=== PATIENT | female | born 1985 | race Caucasian/White ===

== ENCOUNTER 2017-04-27 08:23 | Emergency (ER) | payer SELFPAY ==
[2017-04-27 09:33] LABS: Urine Blood NEGATIVE (NEG); Urine Glucose NEGATIVE (NEG); Urine Protein NEGATIVE (NEG); Urine Specific Gravity 1.025 (1.005-1.030)
--- NOTE | 2017-04-27 09:55 | ER ---
Nurse's Notes [facility] Name: Marcy Montiel Age: 31 yrs Sex: Female : 1985 Arrival Date: 04/27/2017 Time: 08:27 Bed 15 Private MD: Diagnosis: Bronchitis, not specified as acute or chronic;Acute pharyngitis Presentation: 04/27 08:46 Presenting complaint: Patient states: i had initially had sore throat 3 weeks ago, but hj it went away now it came back 2 days ago with a cough and last night, with my cough, i had a phlegm with blood on it; denies fever and chills; reports chest pain due to coughing;. Transition of care: patient was not received from another setting of care. Onset of symptoms was April 27, 2017. Care prior to arrival: None. 08:46 Method Of Arrival: Ambulatory 08:46 Acuity: ZAINAB 4 hj Triage Assessment: 08:48 General: Appears in no apparent distress. uncomfortable, Behavior is calm, cooperative, hj appropriate for age. Pain: Complains of pain in chest. EENT: Reports pain when swallowing. 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 - Social history:: Smoking status: Patient uses tobacco products, Patient/guardian denies using alcohol. Screenin:48 Abuse screen: Denies threats or abuse. Denies injuries from another. Nutritional hj screening: No deficits noted. Tuberculosis screening: No symptoms or risk factors identified. Fall Risk None identified. Assessment: 08:49 Respiratory: Airway is patent Respiratory effort is even, unlabored, Breath sounds are hj clear. EENT: Throat is reddened. Vital Signs: 08:49 BP 123 / 84; Pulse 90; Resp 18; Temp 98.1(O); Pulse Ox 100% on R/A; Weight 58.97 kg; hj Height 5 ft. 4 in. (162.56 cm); 10:31 BP 107 / 63; Pulse 74; Resp 16; Pulse Ox 100% on R/A; aj1 08:49 Body Mass Index 22.31 (58.97 kg, 162.56 cm) ED Course: 08:27 Patient arrived in ED. mr 08:44 Eliza Velásquez NP is PHCP. rh1 08:44 Kamaljit Loya MD is Attending Physician. rh1 08:45 Caleb Salcido, RN is Primary Nurse. hj 08:47 Triage completed. hj 08:50 Arm band placed on right wrist. hj 08:50 Patient has correct armband on for positive identification. Bed in low position. Call light in reach. Side rails up X 1. 10:31 No provider procedures requiring assistance completed. IV discontinued, intact, aj1 bleeding controlled, No redness/swelling at site. Pressure dressing applied. Administered Medications: No medications were administered Outcome: 09:54 Discharge ordered by . rh1 10:31 Discharged to home ambulatory. aj1 10:31 Condition: good 10:31 Discharge instructions given to patient, Instructed on discharge instructions, follow up and referral plans. medication usage, Demonstrated understanding of instructions, follow-up care, medications, Prescriptions given X 2. 10:32 Patient left the ED. aj1 Signatures: Cheryl Morgan RN RN aj1 Lurdes Menjivar mr Eliza Velásquez, SARAH SOIL TESTER [facility] Caleb Salcido, MARIA G CUMMINS
--- NOTE | 2017-04-27 09:55 | EDPHYS ---
Physician Documentation [facility] Name: Marcy Montiel Age: 31 yrs Sex: Female : 1985 Arrival Date: 04/27/2017 Time: 08:27 Bed 15 Private MD: ED Physician Kamaljit Loya HPI: 04/27 08:45 This 31 yrs old Female presents to ER via Ambulatory with complaints of Chest rh1 Congestion, Cough, Sore Throat, Ear Pain. 08:45 Onset: The symptoms/episode began/occurred 3 week(s) ago. Associated signs and rh1 symptoms: Pertinent positives: congestion, cough, nasal discharge, sore throat, Pertinent negatives: abdominal pain, chest pain, diarrhea, fever, headache, shortness of breath, vomiting, wheezing. Modifying factors: The patient symptoms are alleviated by nothing, the patient symptoms are aggravated by nothing. The patient has not experienced similar symptoms in the past. The patient has not recently seen a physician. PT. reports runny nose, congestion and coughing for the past 3 weeks, with increased symptoms for the past 3 days. Reports sore throat worse since last night, and small amount of brown sputum with coughing last night. Denies any SOB, vomiting, fever/chills.. 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 - Social history:: Smoking status: Patient uses tobacco products, Patient/guardian denies using alcohol. ROS: 08:45 Constitutional: Negative for fever, chills rh1 08:45 ENT: Positive for nasal discharge, rhinorrhea, sinus congestion, sore throat, Negative for difficulty swallowing, difficulty handling secretions, hoarseness. 08:45 Cardiovascular: Negative for chest pain, edema, palpitations. 08:45 Cardiovascular: 08:45 Respiratory: Positive for cough, with rust-colored sputum, Negative for dyspnea on exertion, shortness of breath, wheezing. 08:45 Abdomen/GI: Negative for vomiting, diarrhea. 08:45 : Positive for burning with urination, intermittently for "years", Negative for small amounts, vaginal discharge. 08:45 Skin: Negative for rash. 08:45 Neuro: Negative for altered mental status, dizziness, headache. 08:45 All other systems are negative. Exam: 08:45 Constitutional: This is a well developed, well nourished patient who is awake, alert, rh1 and in no acute distress. Head/Face: Normocephalic, atraumatic. 08:45 Neck: Trachea midline, and no cervical lymphadenopathy. Supple, full range of motion without nuchal rigidity. No Meningismus. Chest/axilla: Normal chest wall appearance and motion. Nontender with no deformity. No lesions are appreciated. Cardiovascular: Regular rate and rhythm with a normal S1 and S2. No gallops, murmurs, or rubs. No JVD. No pulse deficits. Respiratory: Lungs have equal breath sounds bilaterally, clear to auscultation. No rales, rhonchi or wheezes noted. No increased work of breathing. Abdomen/GI: Soft, non-tender, with normal bowel sounds. No distension. No guarding or rebound. No evidence of tenderness throughout. Back: No spinal tenderness. No costovertebral tenderness. Full range of motion. Skin: Warm, dry with normal turgor. Normal color with no rashes, no lesions, and no evidence of cellulitis. 08:45 Head/face: Sinus tenderness, that is mild, is located over the right frontal sinus, left frontal sinus, right maxillary sinus and left maxillary sinus. 08:45 ENT: External ear(s): are unremarkable, no pain with movement, Ear canal(s): are normal, clear, no cerumen impaction, no erythema, no foreign body, no purulent discharge, no swelling, TM's: are normal, no evidence of bulging, no dullness, no erythema, no fluid levels, no hemotympanum, no rupture, normal bony landmarks, Nose: Nasal mucosa: edematous, erythematous, moist, Turbinates: are normal, nasal drainage, is not appreciated, Mouth: is normal, no lip abnormalities, no mucosal abnormalities, Posterior pharynx: is normal, airway is patent, no exudate, no peritonsilar mass, no pooling of secretions, no swelling, normal tonsil apperance, normal sized tonsils, normal uvula appearance, normal uvula size, erythema, that is mild. 08:45 Neuro: Orientation: is normal, to person, place \\T\\ time. Mentation: is normal, lucid, able to follow commands, Motor: is normal, moves all fours, Gait: is steady, at a normal pace, without difficulty. Vital Signs: 08:49 BP 123 / 84; Pulse 90; Resp 18; Temp 98.1(O); Pulse Ox 100% on R/A; Weight 58.97 kg; hj Height 5 ft. 4 in. (162.56 cm); 10:31 BP 107 / 63; Pulse 74; Resp 16; Pulse Ox 100% on R/A; aj1 08:49 Body Mass Index 22.31 (58.97 kg, 162.56 cm) hj MDM: 08:45 Patient medically screened. rh1 09:54 Data reviewed: vital signs, nurses notes, lab test result(s), and as a result, I will 1 discharge patient. Data interpreted: Pulse oximetry: on room air is 100 %. Interpretation: normal. Counseling: I had a detailed discussion with the patient and/or guardian regarding: the historical points, exam findings, and any diagnostic results supporting the discharge/admit diagnosis, lab results, the need for outpatient follow up, a family practitioner, to return to the emergency department if symptoms worsen or persist or if there are any questions or concerns that arise at home. 04/27 08:58 Order name: Urine Dipstick--Ancillary (enter results) ms 04/27 08:58 Order name: Urine --Ancillary (enter results) ms 04/27 08:50 Order name: Urine Dipstick-Ancillary (obtain specimen); Complete Time: 09:06 [facility] 04/27 08:50 Order name: Urine Test (obtain specimen); Complete Time: 09:06 [facility] 04/27 09:33 Order name: Urine --Ancillary; Complete Time: 09:35 EDMS 04/27 09:33 Order name: Urine Dipstick-Ancillary; Complete Time: 09:35 EDMS Administered Medications: No medications were administered Disposition: 21:34 Co-signature as Attending Physician, Kamaljit Loya MD I agree with the assessment and kdr plan of care. Disposition: 04/27/17 09:54 Discharged to Home. Impression: Bronchitis, not specified as acute or chronic, Acute pharyngitis. - Condition is Stable. - Discharge Instructions: Acute Bronchitis, Pharyngitis, Salt Water Gargle, Upper Respiratory Infection, Adult. - Prescriptions for Tessalon Perles 100 mg Oral Capsule - take 1 capsule by ORAL route every 8 hours As needed; 15 capsule. Zithromax Z- Melecio 250 mg Oral Tablet - take 1 tablet by ORAL route as directed for 5 days Day 1 - take two (2) tablets one time. Day 2, 3, 4 , 5 take one (1) tablet once daily.; 6 tablet. - Medication Reconciliation Form, Thank You Letter, Antibiotic Education, Prescription Opioid Use form. - Follow up: Private Physician; When: 1 - 2 days; Reason: Recheck today's complaints, Continuance of care, Re-evaluation by your physician. Follow up: Emergency Department; When: As needed; Reason: Fever > 102 F, If symptoms return, Trouble breathing, Worsening of condition. - Problem is new. - Symptoms have improved. Signatures: Dispatcher [employer] Cheryl Correa, RN RN aj1 Kamaljit Loya MD MD kdr Jones, Rachel, NP MEDICAL DELIVERY TECHNICIAN rh1 Caleb Salcido RN RN
[2017-04-27 10:46] VITALS: BP 107/63; O2SAT 100
[2017-04-27 10:47] VITALS: TEMP 98.1
== END 2017-04-27 10:32 | disposition home or self-care (01) ==
LOC: ER 08:23
DX: Z88.0 Allergy status to penicillin; J40 Bronchitis, not specified as acute or chronic; J02.9 Acute pharyngitis, unspecified
CPT/HCPCS: 81003; 81025; 99282

== ENCOUNTER 2017-09-08 01:04 | Emergency (ER) | payer SELFPAY ==
--- NOTE | 2017-09-08 01:57 | ER ---
Nurse's Notes [facility] Name: Marcy Montiel Age: 32 yrs Sex: Female : 1985 Arrival Date: 09/08/2017 Time: 01:09 Bed 26 Private MD: Diagnosis: Otitis media, unspecified, right ear;Acute upper respiratory infection, unspecified Presentation: 09/08 01:20 Presenting complaint: Patient states: she woke up 2 days ago with an itchy throat which bb developed into facial-jaw pain, pain to her left ear and swollen lymph nodes pt has tried OTC medication but it is not helping. Transition of care: patient was not received from another setting of care. Onset of symptoms was September 06, 2017. Risk Assessment: Do you want to hurt yourself or someone else? Patient reports no desire to harm self or others. Initial Sepsis Screen: Does the patient meet any 2 criteria? No. Patient's initial sepsis screen is negative. Does the patient have a suspected source of infection? No. Patient's initial sepsis screen is negative. Care prior to arrival: None. 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 - Social history:: Smoking status: Patient uses tobacco products, smokes one-half pack cigarettes per day, Patient/guardian denies using alcohol, street drugs. - Ebola Screening: : No symptoms or risks identified at this time. - Family history:: not pertinent. Screenin:01 Abuse screen: Denies threats or abuse. Denies injuries from another. Nutritional rv screening: No deficits noted. Tuberculosis screening: No symptoms or risk factors identified. Fall Risk None identified. Assessment: 02:00 General: Appears in no apparent distress. comfortable, Behavior is calm, cooperative. rv Pain: Complains of pain in face left side. Neuro: Level of Consciousness is awake, alert, obeys commands, Oriented to person, place, time, situation. Cardiovascular: Capillary refill < 3 seconds. Respiratory: Airway is patent. GI: No signs and/or symptoms were reported involving the gastrointestinal system. : No signs and/or symptoms were reported regarding the genitourinary system. EENT: No signs and/or symptoms were reported regarding the EENT system. Derm: Skin is intact. Vital Signs: 01:21 BP 119 / 81; Pulse 64; Resp 16 S; Temp 98.2(O); Pulse Ox 100% on R/A; Weight 58.97 kg bb (R); Height 5 ft. 4 in. (162.56 cm) (R); Pain 10/10; 01:21 Body Mass Index 22.31 (58.97 kg, 162.56 cm) bb ED Course: 01:09 Patient arrived in ED. es 01:21 Triage completed. bb 01:21 Arm band placed on Patient placed in an exam room, on a stretcher, on pulse oximetry. bb Family accompanied patient. 01:28 Oliver Conrad MD is Attending Physician. [facility] 02:01 Patient has correct armband on for positive identification. Bed in low position. Call rv light in reach. Side rails up X 1. Pulse ox on. NIBP on. 02:07 No provider procedures requiring assistance completed. Patient did not have IV access rv during this emergency room visit. Administered Medications: 02:00 Drug: Zithromax 500 mg Route: PO; rv 02:07 Follow up: Response: Medication administered at discharge. rv 02:00 Drug: Motrin 600 mg Route: PO; rv 02:06 Follow up: Response: Medication administered at discharge. rv Outcome: 01:57 Discharge ordered by . jeannette 02:07 Discharged to home ambulatory. rv 02:07 Condition: good 02:07 Discharge instructions given to patient, Instructed on discharge instructions, follow up and referral plans. medication usage. 02:07 Patient left the ED. rv Signatures: Oliver Conrad MD MD cha Salyer, Edna es Ballard, Brenda, MARIA G RN Silvano Garvey RN RN rv
--- NOTE | 2017-09-08 01:57 | EDPHYS ---
Physician Documentation [facility] Name: Marcy Montiel Age: 32 yrs Sex: Female : 1985 Arrival Date: 09/08/2017 Time: 01:09 Bed 26 Private MD: ED Physician Oliver Conrad HPI: 09/08 01:48 This 32 yrs old Female presents to ER via Ambulatory with complaints of jeannette Congestion, Sore Throat, Jaw Pain, Swollen Glands. 01:48 The patient presents with sore throat. The patient describes throat pain as scratchy. jeannette Onset: The symptoms/episode began/occurred 2 day(s) ago. Severity of symptoms: At their worst the symptoms were mild, in the emergency department the symptoms. Modifying factors: The symptoms are alleviated by nothing. Associated signs and symptoms: Pertinent positives: earache, Sore throat. The patient has not experienced similar symptoms in the past. 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 - Social history:: Smoking status: Patient uses tobacco products, smokes one-half pack cigarettes per day, Patient/guardian denies using alcohol, street drugs. - Ebola Screening: : No symptoms or risks identified at this time. - Family history:: not pertinent. ROS: 01:48 Constitutional: Negative for fever, chills, and weight loss, Eyes: Negative for injury, jeannette pain, redness, and discharge, Neck: Negative for injury, pain, and swelling, Cardiovascular: Negative for chest pain, palpitations, and edema, Respiratory: Negative for shortness of breath, cough, wheezing, and pleuritic chest pain, Abdomen/GI: Negative for abdominal pain, nausea, vomiting, diarrhea, and constipation, Back: Negative for injury and pain, : Negative for injury, bleeding, discharge, and swelling, MS/Extremity: Negative for injury and deformity, Skin: Negative for injury, rash, and discoloration, Neuro: Negative for headache, weakness, numbness, tingling, and seizure, Psych: Negative for depression, anxiety, suicide ideation, homicidal ideation, and hallucinations, Allergy/Immunology: Negative for hives, rash, and allergies, Endocrine: Negative for neck swelling, polydipsia, polyuria, polyphagia, and marked weight changes. 01:48 ENT: Positive for difficulty swallowing, drainage from ear(s), ear pain, sore throat. Exam: 01:48 Constitutional: This is a well developed, well nourished patient who is awake, alert, jeannette and in no acute distress. Head/Face: Normocephalic, atraumatic. Eyes: Pupils equal round and reactive to light, extra-ocular motions intact. Lids and lashes normal. Conjunctiva and sclera are non-icteric and not injected. Cornea within normal limits. Periorbital areas with no swelling, redness, or edema. Neck: Trachea midline, no thyromegaly or masses palpated, and no cervical lymphadenopathy. Supple, full range of motion without nuchal rigidity, or vertebral point tenderness. No Meningismus. Chest/axilla: Normal chest wall appearance and motion. Nontender with no deformity. No lesions are appreciated. Cardiovascular: Regular rate and rhythm with a normal S1 and S2. No gallops, murmurs, or rubs. Normal PMI, no JVD. No pulse deficits. Respiratory: Lungs have equal breath sounds bilaterally, clear to auscultation and percussion. No rales, rhonchi or wheezes noted. No increased work of breathing, no retractions or nasal flaring. Abdomen/GI: Soft, non-tender, with normal bowel sounds. No distension or tympany. No guarding or rebound. No evidence of tenderness throughout. Back: No spinal tenderness. No costovertebral tenderness. Full range of motion. Female : Normal external genitalia. Skin: Warm, dry with normal turgor. Normal color with no rashes, no lesions, and no evidence of cellulitis. MS/ Extremity: Pulses equal, no cyanosis. Neurovascular intact. Full, normal range of motion. Neuro: Awake and alert, GCS 15, oriented to person, place, time, and situation. Cranial nerves II-XII grossly intact. Motor strength 5/5 in all extremities. Sensory grossly intact. Cerebellar exam normal. Normal gait. 01:48 ENT: TM's: bulging, on the right, decreased mobility. 01:48 Neck: External neck: is normal, C-spine: appears grossly normal, no acute changes, Thyroid: appears normal, Trachea: is midline with no obvious abnormalities, no acute changes, ROM/movement: no acute changes, Lymph nodes: lymphadenopathy is appreciated, anterior cervical nodes, submandibular nodes. Vital Signs: 01:21 BP 119 / 81; Pulse 64; Resp 16 S; Temp 98.2(O); Pulse Ox 100% on R/A; Weight 58.97 kg bb (R); Height 5 ft. 4 in. (162.56 cm) (R); Pain 10/10; 01:21 Body Mass Index 22.31 (58.97 kg, 162.56 cm) bb MDM: 01:28 Patient medically screened. [facility] 09/08 01:48 Order name: PO challenge; Complete Time: 02:00 [facility] Administered Medications: 02:00 Drug: Zithromax 500 mg Route: PO; rv 02:07 Follow up: Response: Medication administered at discharge. rv 02:00 Drug: Motrin 600 mg Route: PO; rv 02:06 Follow up: Response: Medication administered at discharge. rv Disposition: 09/08/17 01:57 Discharged to Home. Impression: Otitis media, unspecified, right ear, Acute upper respiratory infection, unspecified. - Condition is Stable. - Discharge Instructions: Otitis Media, Adult, Upper Respiratory Infection, Adult, Cough, Adult. - Prescriptions for Tylenol- Codeine #3 300-30 mg Oral Tablet - take 2 tablets by ORAL route every 6 hours As needed; 24 tablet. Carmen- D 12 Hour 60-120 mg Oral Tablet Sustained Release 12 hr - take 1 tablet by ORAL route every 12 hours As needed; 20 tablet. Zithromax Z- Melecio 250 mg Oral Tablet - take 1 tablet by ORAL route as directed for 5 days Day 1 - take two (2) tablets one time. Day 2, 3, 4 , 5 take one (1) tablet once daily.; 6 tablet. - Medication Reconciliation Form, Thank You Letter, Antibiotic Education, Prescription Opioid Use form. - Follow up: Private Physician; When: 2 - 3 days; Reason: Recheck today's complaints, Continuance of care, Re-evaluation by your physician. - Problem is new. - Symptoms have improved. Signatures: Oliver Conrad MD MD cha Ballard, Brenda, RN RN bb Silvano Santacruz, MARIA G RN rv Corrections: (The following items were deleted from the chart) 02:07 01:57 09/08/2017 01:57 Discharged to Home. Impression: Otitis media, unspecified, right rv ear; Acute upper respiratory infection, unspecified. Condition is Stable. Forms are Medication Reconciliation Form, Thank You Letter, Antibiotic Education, Prescription Opioid Use. Follow up: Private Physician; When: 2 - 3 days; Reason: Recheck today's complaints, Continuance of care, Re-evaluation by your physician. Problem is new. Symptoms have improved. jeannette
[2017-09-08] MEDS ORDERED: IBUPROFEN 400 MG TAB ONE (02:02)
[2017-09-08] MEDS ORDERED: AZITHROMYCIN 250 MG TAB ONE (02:02)
[2017-09-08] MEDS ORDERED: IBUPROFEN 200 MG TAB PO ONE (02:02)
[2017-09-08 02:18] VITALS: BP 119/81; TEMP 98.2; O2SAT 100
== END 2017-09-08 02:07 | disposition home or self-care (01) ==
LOC: ER 01:04
DX: J06.9 Acute upper respiratory infection, unspecified (principal); H66.91 Otitis media, unspecified, right ear; F17.210 Nicotine dependence, cigarettes, uncomplicated; Z88.0 Allergy status to penicillin; Z88.8 Allergy status to other drugs, medicaments and biological substances
CPT/HCPCS: 99283

== ENCOUNTER 2017-10-13 21:06 | Emergency (ER) | payer SELFPAY ==
[2017-10-13 21:43] LABS: Urine Blood TRACE (NEG); Urine Glucose NEGATIVE (NEG); Urine Protein NEGATIVE (NEG); Urine Specific Gravity 1.025 (1.005-1.030)
[2017-10-13 21:56] LABS: Absolute Lymphocytes (CBC) 3.1 K/uL (0.7-4.9); Absolute Monocytes 0.6 K/uL (0.1-1.3); Absolute Neutrophil 6.5 K/uL (1.8-8.0); Basophils % 0.6 % (0-1.3); Eosinophils % 2.3 % (0-4.4); Hematocrit 42.7 % (36.0-45.0); Lymphocytes % 29.3 % (15.3-44.8); MCH 31.5 pg (27.0-35.0); MCV 89.5 fL (80-100); MPV 8.8 fL (7.6-11.3); Monocytes % 5.4 % (3.3-12.3); RBC Red Blood Cell Count 4.77 M/uL (3.86-4.86)
[2017-10-13] MEDS ORDERED: ACETAMINOPHEN 500 MG TAB ONE (21:58)
[2017-10-13 22:09] LABS: Urine Bacteria 20-50 /HPF (<20); Urine Culture Reflex Order REFLEXED; Urine RBC <5 /HPF (NONE SEEN)
[2017-10-13 22:11] LABS: Albumin 4.3 g/dL (3.4-5.0); Bilirubin Direct 0.1 mg/dL (0-0.2); Bilirubin Total 0.3 mg/dL (0.2-1.0); Potassium 3.6 mmol/L (3.5-5.1); Protein, Total 7.8 g/dL (6.4-8.2)
--- NOTE | 2017-10-13 23:12 | EDPHYS ---
Physician Documentation [facility] Name: Marcy Montiel Age: 32 yrs Sex: Female : 1985 Arrival Date: 10/13/2017 Time: 21:14 Bed 23 Private MD: Wilber Stiles H ED Physician Osmany Allan HPI: 10/13 21:49 This 32 yrs old Female presents to ER via Ambulatory with complaints of wa Abdominal Pain. 21:49 The patient presents with abdominal pain that is diffuse, c/o bloating. Onset: The wa symptoms/episode began/occurred 2 day(s) ago. The symptoms do not radiate. Associated signs and symptoms: Pertinent positives: nausea, vaginal discharge, Pertinent negatives: diarrhea, dysuria, fever. The symptoms are described as achy. Modifying factors: The symptoms are alleviated by nothing, the symptoms are aggravated by nothing. Severity of pain: At its worst the pain was moderate in the emergency department the pain is unchanged. The patient has not experienced similar symptoms in the past. The patient has not recently seen a physician. states painful intercourse, sometimes notes blood. also vag discharge x several months. IUD x 5 years. states was supposed to get removed back in June but has not been able to. 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 - Social history:: Smoking status: Patient uses tobacco products, smokes one-half pack cigarettes per day. - Ebola Screening: : No symptoms or risks identified at this time. - Family history:: not pertinent. - Hospitalizations: : No recent hospitalization is reported. ROS: 21:51 Constitutional: Negative for fever, chills, and weight loss, Eyes: Negative for injury, wa pain, redness, and discharge, ENT: Negative for injury, pain, and discharge, Neck: Negative for injury, pain, and swelling, Cardiovascular: Negative for chest pain, palpitations, and edema, Respiratory: Negative for shortness of breath, cough, wheezing, and pleuritic chest pain, Back: Negative for injury and pain, MS/Extremity: Negative for injury and deformity, Skin: Negative for injury, rash, and discoloration, Neuro: Negative for headache, weakness, numbness, tingling, and seizure, Psych: Negative for depression, anxiety, suicide ideation, homicidal ideation, and hallucinations. 21:51 Abdomen/GI: Positive for abdominal pain, of the diffuse, Negative for vomiting, diarrhea. 21:51 : Positive for 21:52 : Positive for vaginal discharge, Negative for urinary symptoms. wa 21:52 All other systems are negative. Exam: 21:53 Constitutional: This is a well developed, well nourished patient who is awake, alert, wa and in no acute distress. Head/Face: Normocephalic, atraumatic. Eyes: Pupils equal round and reactive to light, extra-ocular motions intact. Lids and lashes normal. Conjunctiva and sclera are non-icteric and not injected. Cornea within normal limits. Periorbital areas with no swelling, redness, or edema. ENT: Nares patent. No nasal discharge, no septal abnormalities noted. Tympanic membranes are normal and external auditory canals are clear. Oropharynx with no redness, swelling, or masses, exudates, or evidence of obstruction, uvula midline. Mucous membranes moist. Neck: Trachea midline, no thyromegaly or masses palpated, and no cervical lymphadenopathy. Supple, full range of motion without nuchal rigidity, or vertebral point tenderness. No Meningismus. Chest/axilla: Normal chest wall appearance and motion. Nontender with no deformity. No lesions are appreciated. Cardiovascular: Regular rate and rhythm with a normal S1 and S2. No gallops, murmurs, or rubs. Normal PMI, no JVD. No pulse deficits. Respiratory: Lungs have equal breath sounds bilaterally, clear to auscultation and percussion. No rales, rhonchi or wheezes noted. No increased work of breathing, no retractions or nasal flaring. Back: No spinal tenderness. No costovertebral tenderness. Full range of motion. Skin: Warm, dry with normal turgor. Normal color with no rashes, no lesions, and no evidence of cellulitis. MS/ Extremity: Pulses equal, no cyanosis. Neurovascular intact. Full, normal range of motion. Neuro: Awake and alert, GCS 15, oriented to person, place, time, and situation. Cranial nerves II-XII grossly intact. Motor strength 5/5 in all extremities. Sensory grossly intact. Cerebellar exam normal. Normal gait. Psych: Awake, alert, with orientation to person, place and time. Behavior, mood, and affect are within normal limits. 21:53 Abdomen/GI: Inspection: distension, that is mild, in the diffuse, Bowel sounds: normal, in all quadrants, Palpation: soft, in all quadrants, mild abdominal tenderness, in all quadrants, no appreciated organomegaly. 22:19 : CVA tenderness, is absent, Pelvic Exam: External exam: is normal, Speculum exam: no wa bleeding is noted, no cervicitis, os that is closed, IUD string noted, no tissue in cervix is seen, discharge, yellow, think, the nurse was present for the exam. Vital Signs: 21:26 BP 130 / 82; Pulse 74; Resp 16; Temp 97.2; Pulse Ox 100% on R/A; Weight 56.7 kg; Height la1 5 ft. 4 in. (162.56 cm); 23:20 BP 127 / 74; Pulse 81; Resp 16; Pulse Ox 100% on R/A; la1 21:26 Body Mass Index 21.46 (56.70 kg, 162.56 cm) la1 MDM: 21:25 Patient medically screened. wa 21:54 Differential diagnosis: non-specific abd pain, Pelvic Inflammatory Disease, urinary wa tract infection, r/o ruptured ovarian cyst. 23:08 Data reviewed: vital signs, nurses notes. Test interpretation: by ED physician or nd midlevel provider: labs noted within normal limits. 23:08 Test interpretation: by ED physician or midlevel provider: pelvic US: no acute process. wa IUD at fundus. 23:09 Response to treatment: the patient's symptoms have markedly improved after treatment. 10/13 21:34 Order name: Basic Metabolic Panel; Complete Time: 22:24 10/13 21:34 Order name: CBC with Diff; Complete Time: 22:24 10/13 21:34 Order name: Hepatic Function; Complete Time: 23:06 10/13 21:34 Order name: Lipase 10/13 21:34 Order name: Urine Microscopic Only; Complete Time: 22:24 10/13 21:36 Order name: Wet Prep; Complete Time: 23:06 10/13 21:36 Order name: GC (GONORR/CHLAMYDIA) Probe 10/13 21:37 Order name: Urine Dipstick--Ancillary (enter results); Complete Time: 22:24 [facility] 10/13 21:37 Order name: Urine --Ancillary (enter results); Complete Time: 22:24 [facility] 10/13 22:11 Order name: Urine Culture [facility] 10/13 22:22 Order name: US Pelvis Complete nd 10/13 21:34 Order name: Urine Test (obtain specimen); Complete Time: 21:42 nd 10/13 21:34 Order name: IV Saline Lock; Complete Time: 21:42 nd 10/13 21:34 Order name: Labs collected and sent; Complete Time: :42 nd 10/13 21:34 Order name: Urine Dipstick-Ancillary (obtain specimen); Complete Time: :42 nd Administered Medications: 21:55 Not Given (Patient Refused): Tylenol 1000 mg PO once la1 23:09 CANCELLED (Inappropriate at this time): TORadol 30 mg IVP once nd Disposition: 10/13/17 23:10 Discharged to Home. Impression: Abdominal pain, Bloating. - Condition is Stable. - Discharge Instructions: Abdominal Pain, Adult, [id number]. - Prescriptions for Ibuprofen 600 mg Oral Tablet - take 1 tablet by ORAL route every 6 hours As needed take with food; 30 tablet. - Medication Reconciliation Form, Thank You Letter, Antibiotic Education, Prescription Opioid Use form. - Follow up: Joanne Pal MD; When: 1 - 2 days; Reason: Recheck today's complaints. - Problem is new. - Symptoms have improved. - Notes: follow up with the abdomen and [employer] doctors for further evaluation. return to ER immediately if symptoms worsen Signatures: Dispatcher [employer] EDMS Augie Bennett RN RN la1 Osmany Allan MD MD nd Corrections: (The following items were deleted from the chart) 22:59 22:57 Pelvis Complete ordered. EDMD EDMD 23:09 23:09 TORadol 30 mg IVP once ordered. [facility] 23:20 23:10 10/13/2017 23:10 Discharged to Home. Impression: Abdominal pain; Bloating. la1 Condition is Stable. Forms are Medication Reconciliation Form, Thank You Letter, Antibiotic Education, Prescription Opioid Use. Follow up: Joanne Kadiyala; When: 1 - 2 days; Reason: Recheck today's complaints. Problem is new. Symptoms have improved. chance
--- NOTE | 2017-10-13 23:12 | ER ---
Nurse's Notes [facility] Name: Marcy Montiel Age: 32 yrs Sex: Female : 1985 Arrival Date: 10/13/2017 Time: 21:14 Bed 23 Private MD: Wilber Stiles H Diagnosis: Abdominal pain;Bloating Presentation: 10/13 21:25 Presenting complaint: Patient states: Abd swelling, nipple pain, pt states she feels la1 and looks but tests are negative. States with her son tests were negative till she was 4 months along. Transition of care: patient was not received from another setting of care. Onset of symptoms was October 13, 2017. Risk Assessment: Do you want to hurt yourself or someone else? Patient reports no desire to harm self or others. Initial Sepsis Screen: Does the patient meet any 2 criteria? No. Patient's initial sepsis screen is negative. Does the patient have a suspected source of infection? No. Patient's initial sepsis screen is negative. Care prior to arrival: None. 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 - Social history:: Smoking status: Patient uses tobacco products, smokes one-half pack cigarettes per day. - Ebola Screening: : No symptoms or risks identified at this time. - Family history:: not pertinent. - Hospitalizations: : No recent hospitalization is reported. Screenin:27 Abuse screen: Denies threats or abuse. Denies injuries from another. Nutritional mg2 screening: No deficits noted. Tuberculosis screening: No symptoms or risk factors identified. Fall Risk None identified. Assessment: 22:29 General: Appears in no apparent distress. Behavior is calm, cooperative. Pain: Denies la1 pain. Neuro: Level of Consciousness is awake, alert, obeys commands, Oriented to person, place, time, situation. Cardiovascular: Capillary refill < 3 seconds Patient's skin is warm and dry. Respiratory: Airway is patent Respiratory effort is even, unlabored, Respiratory pattern is regular, symmetrical, Breath sounds are clear bilaterally. GI: Abdomen is round non-distended, Bowel sounds present X 4 quads. Abd is soft and non tender X 4 quads. : No signs and/or symptoms were reported regarding the genitourinary system. Vital Signs: 21:26 BP 130 / 82; Pulse 74; Resp 16; Temp 97.2; Pulse Ox 100% on R/A; Weight 56.7 kg; Height la1 5 ft. 4 in. (162.56 cm); 23:20 BP 127 / 74; Pulse 81; Resp 16; Pulse Ox 100% on R/A; la1 21:26 Body Mass Index 21.46 (56.70 kg, 162.56 cm) la1 ED Course: 21:14 Patient arrived in ED. es 21:15 Wilber Stiles DO is Private Physician. es 21:25 Augie Bennett, RN is Primary Nurse. la1 21:25 Osmany Allan MD is Attending Physician. wa 21:26 Triage completed. la1 21:27 Arm band placed on right wrist. la1 22:29 Patient has correct armband on for positive identification. Placed in gown. Bed in low mg2 position. Call light in reach. Pulse ox on. NIBP on. 22:30 No provider procedures requiring assistance completed. Inserted saline lock: 22 gauge la1 in right forearm, using aseptic technique. Blood collected. 22:30 Assist provider with pelvic exam: Set up pelvic tray. Performed by Osmany Allan MD mg2 Specimens sent to lab. Patient tolerated well. 22:42 Ultrasound completed. Patient tolerated well. sg3 22:59 US Pelvis Complete In Process Unspecified. EDMS 23:10 Joanne Pal MD is Referral Physician. wa 23:19 IV discontinued, intact, bleeding controlled, No redness/swelling at site. Pressure la1 dressing applied. Administered Medications: 21:55 Not Given (Patient Refused): Tylenol 1000 mg PO once la1 23:09 CANCELLED (Inappropriate at this time): TORadol 30 mg IVP once sc Outcome: 23:10 Discharge ordered by . sc 23:19 Discharged to home ambulatory. la1 23:19 Condition: stable 23:19 Discharge instructions given to patient, Instructed on discharge instructions, follow up and referral plans. medication usage, Demonstrated understanding of instructions, follow-up care, medications, Prescriptions given X 1. 23:20 Patient left the ED. la1 Signatures: Dispatcher [employer] EDLeslie Church Lee RN RN la1 Osmany Allan MD MD wa Godinez, Sarah 3 Nirmal Bell RN RN mg2
[2017-10-13 23:51] VITALS: TEMP 97.2; O2SAT 100
[2017-10-13 23:53] VITALS: BP 127/74
--- NOTE | 2017-10-14 12:14 | RAD REPORT ---
EXAM DESCRIPTION: US - Pelvis Complete - 10/14/2017 10:29 am CLINICAL HISTORY: pelvic pain. vag d/c. IUD Pelvic pain. COMPARISON: TRANSVAGINAL STUDY PROBE dated 05/27/2014 FINDINGS: The uterus is normal in size, shape and echotexture. Endometrial stripe is thin. IUD appears a little low in position at the level of the body of the uter us. Suggest clinical correlation. . Both ovaries are normal in size, shape and echotexture. The right ovary measures 2.7 x 2.6 x 2.8 cm. The left ovary measures 3.3 x 3.3 x 2.6 cm. No ovarian or parovarian lesions. No adnexal masses. Normal Doppler blood flow was demonstrated to both ovaries. No significant pelvic ascites. IMPRESSION: The IUD position appears a little bit lower than typically seen, likely at the level of the midbody of the uterus.Advise clinical correlation.
[2017-10-17 05:32] LABS: C.trachomatis RNA,TMA Not Detected (Not Detected)
== END 2017-10-13 23:20 | disposition home or self-care (01) ==
LOC: ER 21:06
DX: R14.0 Abdominal distension (gaseous) (principal); F17.210 Nicotine dependence, cigarettes, uncomplicated; Z88.8 Allergy status to other drugs, medicaments and biological substances
CPT/HCPCS: 36415; 76856; 80048; 80076; 81003; 81015; 81025; 83690; 85025; 87086; 87088; 87210; 87490; 87590; 99284

== ENCOUNTER 2017-11-22 07:38 | Emergency (ER) | payer SELFPAY ==
--- NOTE | 2017-11-22 08:11 | EDPHYS ---
Physician Documentation [facility] Name: Marcy Montiel Age: 32 yrs Sex: Female : 1985 Arrival Date: 11/22/2017 Time: 07:41 Bed 12 Private MD: None, None ED Physician Alvaro Godwin HPI: 11/22 08:02 This 32 yrs old Female presents to ER via Ambulatory with complaints of Mouth kb Problem. 08:02 The patient presents with pain, redness, swelling. The problem is located in the lower kb left third molar, lower left second molar and lower left first molar. Onset: The symptoms/episode began/occurred 3 day(s) ago. Duration: The symptoms are continuous. Modifying factors: The symptoms are alleviated by nothing, the symptoms are aggravated by opening mouth. Associated signs and symptoms: Pertinent positives: pain, redness in area, swelling. Severity of symptoms: At their worst the symptoms were moderate, in the emergency department the symptoms are unchanged. The patient has experienced similar episodes in the past, a few times. The patient has not recently seen a physician. Pt reports pain and swelling to left lower jaw for 3 days. Reports she has had this problem in the past and the dentist told her to follow up with an oral surgeon, but she hasn't been to able to. . 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 - Ebola Screening: : Patient negative for fever greater than or equal to 101.5 degrees Fahrenheit, and additional compatible Ebola Virus Disease symptoms Patient denies exposure to infectious person Patient denies travel to an Ebola-affected area in the 21 days before illness onset No symptoms or risks identified at this time. - Social history:: Smoking status: . ROS: 08:02 Constitutional: Negative for fever, chills, and weight loss, Cardiovascular: Negative kb for chest pain, palpitations, and edema, Respiratory: Negative for shortness of breath, cough, wheezing, and pleuritic chest pain, Abdomen/GI: Negative for abdominal pain, nausea, vomiting, diarrhea, and constipation, Back: Negative for injury and pain, : Negative for injury, bleeding, discharge, and swelling, MS/Extremity: Negative for injury and deformity, Skin: Negative for injury, rash, and discoloration, Neuro: Negative for headache, weakness, numbness, tingling, and seizure. 08:02 ENT: Positive for dental pain. Exam: 08:02 Constitutional: This is a well developed, well nourished patient who is awake, alert, kb and in no acute distress. Head/Face: Normocephalic, atraumatic. Chest/axilla: Normal chest wall appearance and motion. Nontender with no deformity. No lesions are appreciated. Cardiovascular: Regular rate and rhythm with a normal S1 and S2. No gallops, murmurs, or rubs. Normal PMI, no JVD. No pulse deficits. Respiratory: Lungs have equal breath sounds bilaterally, clear to auscultation and percussion. No rales, rhonchi or wheezes noted. No increased work of breathing, no retractions or nasal flaring. Abdomen/GI: Soft, non-tender, with normal bowel sounds. No distension or tympany. No guarding or rebound. No evidence of tenderness throughout. Skin: Warm, dry with normal turgor. Normal color with no rashes, no lesions, and no evidence of cellulitis. MS/ Extremity: Pulses equal, no cyanosis. Neurovascular intact. Full, normal range of motion. Neuro: Awake and alert, GCS 15, oriented to person, place, time, and situation. Cranial nerves II-XII grossly intact. Motor strength 5/5 in all extremities. Sensory grossly intact. Cerebellar exam normal. Normal gait. 08:02 ENT: Dental exam: abscess, cellulitis, gum swelling, specifically in the lower left third molar (#17), lower left second molar (#18) and lower left first molar (#19), pain, that is moderate. Vital Signs: 08:03 BP 121 / 80; Pulse 83; Resp 16; Temp 98.3; Pulse Ox 100% on R/A; Weight 56.7 kg; Pain iw 9/10; MDM: 07:58 Patient medically screened. kb 08:02 Data reviewed: vital signs, nurses notes. Data interpreted: Pulse oximetry: on room air kb is 100 %. Interpretation: normal. Counseling: I had a detailed discussion with the patient and/or guardian regarding: the historical points, exam findings, and any diagnostic results supporting the discharge/admit diagnosis, the need for outpatient follow up, a dentist, to return to the emergency department if symptoms worsen or persist or if there are any questions or concerns that arise at home. Administered Medications: No medications were administered Disposition: 09:15 Co-signature as Attending Physician, Alvaro Godwin MD. rn Disposition: 11/22/17 08:10 Discharged to Home. Impression: Periapical abscess without sinus. - Condition is Stable. - Discharge Instructions: Dental Pain, [id number], Dental Abscess, Gkvh-[id number]. - Prescriptions for Augmentin 875- 125 mg Oral Tablet - take 1 tablet by ORAL route every 12 hours for 10 days; 20 tablet. Tramadol 50 mg Oral Tablet - take 1 tablet by ORAL route every 8 hours as needed; 12 tablet. - Medication Reconciliation Form, Thank You Letter, Antibiotic Education, Prescription Opioid Use form. - Follow up: Emergency Department; When: As needed; Reason: Worsening of condition. Follow up: Private Physician; When: 2 - 3 days; Reason: Recheck today's complaints, Continuance of care, Re-evaluation by your physician. Signatures: Saloni Diaz, CLASSIFIED ADVERTISING CLERK-C CLASSIFIED ADVERTISING CLERK-Ckb Wilner Calhoun RN RN Delilah Ruiz RN RN iw Nieto, Roman, MD MD patternator: (The following items were deleted from the chart) 08:23 08:10 11/22/2017 08:10 Discharged to Home. Impression: Periapical abscess without sg sinus. Condition is Stable. Forms are Medication Reconciliation Form, Thank You Letter, Antibiotic Education, Prescription Opioid Use. Follow up: Emergency Department; When: As needed; Reason: Worsening of condition. Follow up: Private Physician; When: 2 - 3 days; Reason: Recheck today's complaints, Continuance of care, Re-evaluation by your physician. kb
--- NOTE | 2017-11-22 08:11 | ER ---
Nurse's Notes [facility] Name: Marcy Montiel Age: 32 yrs Sex: Female : 1985 Arrival Date: 11/22/2017 Time: 07:41 Bed 12 Private MD: None, None Diagnosis: Periapical abscess without sinus Presentation: 11/22 08:01 Presenting complaint: Patient states: left jaw pain from a wisdom tooth X 3 days. iw Transition of care: patient was not received from another setting of care. Onset of symptoms was November 22, 2017. Risk Assessment: Do you want to hurt yourself or someone else? Patient reports no desire to harm self or others. Initial Sepsis Screen: Does the patient meet any 2 criteria? No. Patient's initial sepsis screen is negative. Does the patient have a suspected source of infection? No. Patient's initial sepsis screen is negative. Care prior to arrival: None. 08:01 Method Of Arrival: Ambulatory iw 08:01 Acuity: ZAINAB 4 iw Triage Assessment: 08:15 General: Appears in no apparent distress. Behavior is calm, cooperative. 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 - Ebola Screening: : Patient negative for fever greater than or equal to 101.5 degrees Fahrenheit, and additional compatible Ebola Virus Disease symptoms Patient denies exposure to infectious person Patient denies travel to an Ebola-affected area in the 21 days before illness onset No symptoms or risks identified at this time. - Social history:: Smoking status: . Screenin:20 Abuse screen: Denies threats or abuse. Denies injuries from another. Nutritional iw screening: No deficits noted. Tuberculosis screening: No symptoms or risk factors identified. Fall Risk None identified. Assessment: 08:15 General: Appears in no apparent distress. Behavior is calm, cooperative. Pain: iw Complains of pain in left jaw. Neuro: Level of Consciousness is awake, alert, obeys commands, Oriented to person, place, time, situation, Moves all extremities. Full function. Cardiovascular: Capillary refill < 3 seconds in bilateral fingers Patient's skin is warm and dry. Respiratory: Respiratory effort is even, unlabored, Respiratory pattern is regular, symmetrical. Derm: Skin is intact, is healthy with good turgor. Musculoskeletal: Range of motion: intact in all extremities. Vital Signs: 08:03 BP 121 / 80; Pulse 83; Resp 16; Temp 98.3; Pulse Ox 100% on R/A; Weight 56.7 kg; Pain iw 910; ED Course: 07:41 Patient arrived in ED. mr 07:42 None, None is Private Physician. mr 07:58 Saloni Diaz FNP-C is [facility]. kb 07:58 Alvaro Godwin MD is Attending Physician. kb 07:59 Delilah Velazquez, RN is Primary Nurse. iw 08:02 Triage completed. iw 08:15 Arm band placed on. iw 08:15 Patient has correct armband on for positive identification. iw 08:20 No provider procedures requiring assistance completed. Patient did not have IV access iw during this emergency room visit. Administered Medications: No medications were administered Outcome: 08:10 Discharge ordered by . kb 08:22 Discharged to home ambulatory. iw 08:22 Condition: good 08:22 Discharge instructions given to patient, Instructed on discharge instructions, follow iw up and referral plans. medication usage, Demonstrated understanding of instructions, follow-up care, medications, Prescriptions given X 2. 08:23 Patient left the ED. sg Signatures: Saloni Diaz FNP-C FNP-Ckb Gay, Steven, RN RN MenjivarRina mr Delilah Velazquez, RN RN iw
[2017-11-22 08:27] VITALS: BP 121/80; TEMP 98.3; O2SAT 100
== END 2017-11-22 08:23 | disposition home or self-care (01) ==
LOC: ER 07:38
DX: K04.7 Periapical abscess without sinus (principal); Z88.8 Allergy status to other drugs, medicaments and biological substances
CPT/HCPCS: 99282

== ENCOUNTER 2018-03-12 09:46 | Emergency (ER) | payer SELFPAY ==
[2018-03-12 10:59] LABS: Absolute Lymphocytes (CBC) 1.7 K/uL (0.7-4.9); Absolute Monocytes 0.4 K/uL (0.1-1.3); Absolute Neutrophil 4.9 K/uL (1.8-8.0); Basophils % 0.7 % (0-1.3); Eosinophils % 1.7 % (0-4.4); Lymphocytes % 23.4 % (15.3-44.8); MPV 8.8 fL (7.6-11.3); Monocytes % 5.9 % (3.3-12.3); RBC Red Blood Cell Count 4.99 M/uL (3.86-4.86)
[2018-03-12] MEDS ORDERED: CIPROFLOXACIN 400mg IV 400 MG/200 ML BAG IV ONE (11:02)
[2018-03-12] MEDS ORDERED: NA CHLORIDE 0.9% 1,000 ML ONE (11:02)
[2018-03-12] MEDS ORDERED: MORPHINE 2 MG/ML SYR ONE ×2 (11:02→12:17)
[2018-03-12] MEDS ORDERED: ONDANSETRON 4 MG/2 ML VIAL ONE (11:02)
[2018-03-12] MEDS ORDERED: METRONIDAZOLE 500mg IVPB 500 MG/100 ML BAG IV ONE (11:02)
[2018-03-12 11:14] LABS: Albumin 4.1 g/dL (3.4-5.0); Bilirubin Direct 0.1 mg/dL (0-0.2); Bilirubin Total 0.6 mg/dL (0.2-1.0); Potassium 3.8 mmol/L (3.5-5.1); Protein, Total 7.6 g/dL (6.4-8.2)
[2018-03-12 13:18] LABS: Urine Blood NEGATIVE (NEG); Urine Glucose NEGATIVE (NEG); Urine Protein NEGATIVE (NEG)
--- NOTE | 2018-03-12 13:18 | RAD REPORT ---
EXAM DESCRIPTION: CTAbdomen Pelvis W Contrast - 03/12/2018 1:12 pm CLINICAL HISTORY: Abdominal pain. ABD PAIN COMPARISON: No comparisons TECHNIQUE: Biphasic CT imaging of the abdomen and pelvis was performed with 100 ml non-ionic IV cont rast. All CT scans are performed using dose optimization technique as appropriate and may include automated exposure control or mA/KV adjustment according to patient size. FINDINGS: The lung bases are clear. The liver, spleen, pancreas, adrenal glands and kidneys are within normal limits. No bowel obstruction, free air, free fluid or abscess. The appendix is normal. No evidence of signi ficant lymphadenopathy. No suspicious bony findings. IUD is in the uterus. IMPRESSION: No acute intra-abdominal or pelvic finding.
--- NOTE | 2018-03-12 13:26 | ER ---
Nurse's Notes [facility] Name: Marcy Montiel Age: 32 yrs Sex: Female : 1985 Arrival Date: 03/12/2018 Time: 09:49 Bed 8 Private MD: None, None Diagnosis: Abdominal tenderness;Gastrointestinal hemorrhage, unspecified-lower,rectal, stable Presentation: 03/12 09:52 Presenting complaint: Patient states: noticed blood in stoool and after wiping, reports sg having had this happen before after drinking coffee with an additive called "alert". Reports having normal BM that is soft stool not having to strain, reports having contraction feelings in lower back and weakness in bilateral thighs. Transition of care: patient was not received from another setting of care. Onset of symptoms was March 12, 2018. Risk Assessment: Do you want to hurt yourself or someone else? Patient reports no desire to harm self or others. Initial Sepsis Screen: Does the patient meet any 2 criteria? No. Patient's initial sepsis screen is negative. Does the patient have a suspected source of infection? No. Patient's initial sepsis screen is negative. Care prior to arrival: None. 09:52 Method Of Arrival: Ambulatory sg 09:52 Acuity: ZAINAB 3 sg 09:52 Note pt also complains of cramping in suprapubic area, bilateral lower abd quadrants as sg well. [employer]: 09:54 LMP N/A - Irregular menses sg Historical: - Allergies: 09:56 diphenhydramine HCl; sg - Home Meds: 09:56 None [Active]; sg - PMHx: 09:56 None; sg - PSHx: 09:56 None; sg - Immunization history:: Adult Immunizations up to date. - Social history:: Smoking status: Patient uses tobacco products, denies chronic smoking, but will smoke occasionally. - Ebola Screening: : Patient negative for fever greater than or equal to 101.5 degrees Fahrenheit, and additional compatible Ebola Virus Disease symptoms Patient denies exposure to infectious person Patient denies travel to an Ebola-affected area in the 21 days before illness onset No symptoms or risks identified at this time. - Family history:: not pertinent. Screenin:40 Abuse screen: Denies threats or abuse. Denies injuries from another. Nutritional hb screening: No deficits noted. Tuberculosis screening: No symptoms or risk factors identified. Fall Risk None identified. Assessment: 10:45 General: Appears in no apparent distress. Behavior is calm, cooperative. Pain: Pain hb currently is 5 out of 10 on a pain scale. Neuro: Level of Consciousness is awake, alert, obeys commands, Oriented to person, place, time, situation. Cardiovascular: Capillary refill < 3 seconds Patient's skin is warm and dry. Respiratory: Airway is patent Respiratory effort is even, unlabored, Respiratory pattern is regular, symmetrical, Breath sounds are clear bilaterally. GI: Abdomen is non-distended, Bowel sounds present X 4 quads. Abd is soft and non tender X 4 quads. Reports rectal bleeding. : No signs and/or symptoms were reported regarding the genitourinary system. EENT: No signs and/or symptoms were reported regarding the EENT system. Derm: No signs and/or symptoms reported regarding the dermatologic system. Skin is intact, is healthy with good turgor, Skin is pink, warm \\T\\ dry. Musculoskeletal: No signs and/or symptoms reported regarding the musculoskeletal system. 11:30 Reassessment: Patient appears in no apparent distress at this time. No changes from hb previously documented assessment. Patient and/or family updated on plan of care and expected duration. Pain level reassessed. Patient is alert, oriented x 3, equal unlabored respirations, skin warm/dry/pink. 11:35 Reassessment: Pt finished drinking oral contrast, CT notified. hb 12:10 Reassessment: Pt reports pain 8/10, repeat morphine administered as ordered. VSS. hb Awaiting CT at this time. 13:00 Reassessment: Patient appears in no apparent distress at this time. Patient and/or hb family updated on plan of care and expected duration. Pain level reassessed. Patient is alert, oriented x 3, equal unlabored respirations, skin warm/dry/pink. Patient states feeling better. Patient states symptoms have improved. 14:00 Reassessment: Patient appears in no apparent distress at this time. No changes from hb previously documented assessment. Patient and/or family updated on plan of care and expected duration. Pain level reassessed. Patient is alert, oriented x 3, equal unlabored respirations, skin warm/dry/pink. Vital Signs: 09:54 BP 127 / 79; Pulse 86; Resp 17; Temp 98.2; Pulse Ox 100% ; Weight 56.7 kg (R); Height 5 sg ft. 4 in. (162.56 cm); Pain 8/10; 11:00 BP 120 / 76; Pulse 80; Resp 16; Pulse Ox 99% on R/A; hb 11:56 BP 129 / 78; Pulse 83; Resp 16; Pulse Ox 99% on R/A; Pain 2/10; hb 13:00 BP 122 / 72; Pulse 70; Resp 16; Pulse Ox 99% on R/A; hb 09:54 Body Mass Index 21.46 (56.70 kg, 162.56 cm) sg ED Course: 09:49 Patient arrived in ED. sb2 09:49 None, None is Private Physician. sb2 09:52 Arm band placed on. sg 09:54 Triage completed. sg 10:26 Oliver Conrad MD is Attending Physician. jeannette 10:30 Gema Yusuf, RN is Primary Nurse. hb 10:40 Patient has correct armband on for positive identification. Placed in gown. Bed in low hb position. Call light in reach. Side rails up X 1. 10:50 Inserted saline lock: 22 gauge in left antecubital area, using aseptic technique. Blood hb collected. 13:19 CT Abd/Pelvis - W/Contrast In Process Unspecified. EDMS 13:25 Boris Oneill MD is Referral Physician. jeannette 13:38 No provider procedures requiring assistance completed. IV discontinued, intact, hb bleeding controlled, No redness/swelling at site. Pressure dressing applied. Administered Medications: 11:00 Drug: NS 0.9% 1000 ml Route: IV; Rate: 1 bolus; Site: left antecubital; hb 12:15 Follow up: Response: No adverse reaction; IV Status: Completed infusion hb 11:00 Drug: Cipro 400 mg Volume: 200 ml; Route: IVPB; Infused Over: 60 mins; Site: left hb antecubital; 12:10 Follow up: Response: No adverse reaction; IV Status: Completed infusion hb 11:00 Drug: Flagyl 500 mg Volume: 100 ml; Route: IVPB; Rate: 200 ml/hr; Infused Over: 30 hb mins; Site: left antecubital; 11:40 Follow up: Response: No adverse reaction; IV Status: Completed infusion hb 11:00 Drug: morphine 2 mg Route: IVP; Site: left antecubital; hb 11:30 Follow up: Response: No adverse reaction hb 11:00 Drug: Zofran 4 mg Route: IVP; Site: left antecubital; hb 11:30 Follow up: Response: No adverse reaction hb 12:09 Drug: morphine 2 mg Route: IVP; Site: left antecubital; hb 12:35 Follow up: Response: No adverse reaction hb Outcome: 13:25 Discharge ordered by MD. machado 13:38 Discharged to home with significant other. hb 13:38 Condition: stable 13:38 Discharge instructions given to patient, Instructed on discharge instructions, follow up and referral plans. medication usage, Demonstrated understanding of instructions, follow-up care, medications, Prescriptions given X 4. 13:40 Patient left the ED. hb Signatures: Dispatcher [employer] EDMS Wilner Calhoun, RN Oliver Treviño MD MD cha Baxter, Heather, RN RN Angle Mckinney sb2
--- NOTE | 2018-03-12 13:27 | EDPHYS ---
Physician Documentation [facility] Name: Marcy Montiel Age: 32 yrs Sex: Female : 1985 Arrival Date: 03/12/2018 Time: 09:49 Bed 8 Private MD: None, None ED Physician Oliver Conrad HPI: 03/12 11:17 This 32 yrs old Female presents to ER via Ambulatory with complaints of jeannette Abdominal Pain, Bloody Stools. 11:17 The patient presents to the emergency department with rectal bleeding, bright red blood jeannette with bowel movement. Onset: The symptoms/episode began/occurred just prior to arrival, this morning. Abdominal pain: none is appreciated. Modifying factors: The symptoms are alleviated by nothing, the symptoms are aggravated by nothing. Associated signs and symptoms: The patient has no apparent associated signs or symptoms. Severity of symptoms: At their worst the symptoms were mild in the emergency department the symptoms are unchanged. The patient has not experienced similar symptoms in the past. CARPET JACK: 09:54 LMP N/A - Irregular menses sg Historical: - Allergies: 09:56 diphenhydramine HCl; sg - Home Meds: 09:56 None [Active]; sg - PMHx: 09:56 None; sg - PSHx: 09:56 None; sg - Immunization history:: Adult Immunizations up to date. - Social history:: Smoking status: Patient uses tobacco products, denies chronic smoking, but will smoke occasionally. - Ebola Screening: : Patient negative for fever greater than or equal to 101.5 degrees Fahrenheit, and additional compatible Ebola Virus Disease symptoms Patient denies exposure to infectious person Patient denies travel to an Ebola-affected area in the 21 days before illness onset No symptoms or risks identified at this time. - Family history:: not pertinent. ROS: 11:17 Constitutional: Negative for fever, chills, and weight loss, Eyes: Negative for injury, jeannette pain, redness, and discharge, ENT: Negative for injury, pain, and discharge, Neck: Negative for injury, pain, and swelling, Cardiovascular: Negative for chest pain, palpitations, and edema, Respiratory: Negative for shortness of breath, cough, wheezing, and pleuritic chest pain, Back: Negative for injury and pain, : Negative for injury, bleeding, discharge, and swelling, MS/Extremity: Negative for injury and deformity, Skin: Negative for injury, rash, and discoloration, Neuro: Negative for headache, weakness, numbness, tingling, and seizure, Psych: Negative for depression, anxiety, suicide ideation, homicidal ideation, and hallucinations, Allergy/Immunology: Negative for hives, rash, and allergies, Endocrine: Negative for neck swelling, polydipsia, polyuria, polyphagia, and marked weight changes. 11:17 Abdomen/GI: Positive for rectal bleeding. Exam: 11:17 Constitutional: This is a well developed, well nourished patient who is awake, alert, jeannette and in no acute distress. Head/Face: Normocephalic, atraumatic. Eyes: Pupils equal round and reactive to light, extra-ocular motions intact. Lids and lashes normal. Conjunctiva and sclera are non-icteric and not injected. Cornea within normal limits. Periorbital areas with no swelling, redness, or edema. ENT: Nares patent. No nasal discharge, no septal abnormalities noted. Tympanic membranes are normal and external auditory canals are clear. Oropharynx with no redness, swelling, or masses, exudates, or evidence of obstruction, uvula midline. Mucous membranes moist. Neck: Trachea midline, no thyromegaly or masses palpated, and no cervical lymphadenopathy. Supple, full range of motion without nuchal rigidity, or vertebral point tenderness. No Meningismus. Chest/axilla: Normal chest wall appearance and motion. Nontender with no deformity. No lesions are appreciated. Cardiovascular: Regular rate and rhythm with a normal S1 and S2. No gallops, murmurs, or rubs. Normal PMI, no JVD. No pulse deficits. Respiratory: Lungs have equal breath sounds bilaterally, clear to auscultation and percussion. No rales, rhonchi or wheezes noted. No increased work of breathing, no retractions or nasal flaring. Back: No spinal tenderness. No costovertebral tenderness. Full range of motion. Female : Normal external genitalia. Skin: Warm, dry with normal turgor. Normal color with no rashes, no lesions, and no evidence of cellulitis. MS/ Extremity: Pulses equal, no cyanosis. Neurovascular intact. Full, normal range of motion. Neuro: Awake and alert, GCS 15, oriented to person, place, time, and situation. Cranial nerves II-XII grossly intact. Motor strength 5/5 in all extremities. Sensory grossly intact. Cerebellar exam normal. Normal gait. 11:17 Abdomen/GI: Inspection: abdomen appears normal, Bowel sounds: normal, Palpation: abdomen is soft and non-tender, Rectal exam: is unremarkable, hemorrhoid(s), are not appreciated, mass, that is small, swelling, is not appreciated, tenderness, is not appreciated. Vital Signs: 09:54 BP 127 / 79; Pulse 86; Resp 17; Temp 98.2; Pulse Ox 100% ; Weight 56.7 kg (R); Height 5 sg ft. 4 in. (162.56 cm); Pain 8/10; 11:00 BP 120 / 76; Pulse 80; Resp 16; Pulse Ox 99% on R/A; hb 11:56 BP 129 / 78; Pulse 83; Resp 16; Pulse Ox 99% on R/A; Pain 2/10; hb 13:00 BP 122 / 72; Pulse 70; Resp 16; Pulse Ox 99% on R/A; hb 09:54 Body Mass Index 21.46 (56.70 kg, 162.56 cm) MDM: 10:26 Patient medically screened. [facility] 11:17 Data reviewed: vital signs, nurses notes, lab test result(s), EKG, radiologic studies, [facility] CT scan. 03/12 10:29 Order name: Basic Metabolic Panel; Complete Time: 12:16 jeannette 03/12 10:29 Order name: CBC with Diff; Complete Time: 12:16 [facility] 03/12 10:29 Order name: Creatinine for Radiology; Complete Time: 12:16 [facility] 03/12 10:29 Order name: Hepatic Function; Complete Time: 12:16 [facility] 03/12 10:29 Order name: Lipase; Complete Time: 12:16 [facility] 03/12 12:03 Order name: Urine Dipstick--Ancillary (enter results); Complete Time: 13:25 bd 03/12 10:29 Order name: CT Abd/Pelvis - W/Contrast; Complete Time: 13:25 [facility] 03/12 12:03 Order name: Urine --Ancillary (enter results); Complete Time: 13:25 bd 03/12 10:29 Order name: IV Saline Lock; Complete Time: 10:50 [facility] 03/12 10:29 Order name: Labs collected and sent; Complete Time: 10:50 [facility] 03/12 10:29 Order name: Urine Dipstick-Ancillary (obtain specimen); Complete Time: 11:58 [facility] 03/12 10:29 Order name: Urine Test (obtain specimen); Complete Time: 11:58 [facility] Administered Medications: 11:00 Drug: NS 0.9% 1000 ml Route: IV; Rate: 1 bolus; Site: left antecubital; hb 12:15 Follow up: Response: No adverse reaction; IV Status: Completed infusion hb 11:00 Drug: Cipro 400 mg Volume: 200 ml; Route: IVPB; Infused Over: 60 mins; Site: left hb antecubital; 12:10 Follow up: Response: No adverse reaction; IV Status: Completed infusion hb 11:00 Drug: Flagyl 500 mg Volume: 100 ml; Route: IVPB; Rate: 200 ml/hr; Infused Over: 30 hb mins; Site: left antecubital; 11:40 Follow up: Response: No adverse reaction; IV Status: Completed infusion hb 11:00 Drug: morphine 2 mg Route: IVP; Site: left antecubital; hb 11:30 Follow up: Response: No adverse reaction hb 11:00 Drug: Zofran 4 mg Route: IVP; Site: left antecubital; hb 11:30 Follow up: Response: No adverse reaction hb 12:09 Drug: morphine 2 mg Route: IVP; Site: left antecubital; hb 12:35 Follow up: Response: No adverse reaction hb Disposition: 03/12/18 13:25 Discharged to Home. Impression: Abdominal tenderness, Gastrointestinal hemorrhage, unspecified - lower,rectal, stable. - Condition is Stable. - Discharge Instructions: Abdominal Pain, Adult, Gastrointestinal Bleeding, Rectal Bleeding, Abdominal Pain, Adult, [id number]. - Prescriptions for Bentyl 20 mg Oral Tablet - take 1 tablet by ORAL route every 6 hours As needed; 20 tablet. Colace 100 mg Oral Tablet - take 1 tablet by ORAL route every 12 hours; 14 tablet. Flagyl 500 mg Oral Tablet - take 1 tablet by ORAL route every 12 hours for 7 days; 14 tablet. Cipro 500 mg Oral Tablet - take 1 tablet by ORAL route every 12 hours for 7 days; 14 tablet. - Medication Reconciliation Form, Thank You Letter, Antibiotic Education, Prescription Opioid Use, Family Work Release form. - Follow up: Private Physician; When: 2 - 3 days; Reason: Recheck today's complaints, Continuance of care, Re-evaluation by your physician. Follow up: Boris Oneill; When: 2 - 3 days; Reason: Recheck today's complaints, Re-evaluation by your physician. - Problem is new. - Symptoms have improved. Signatures: Dispatcher [employer] EDMS Wilner Calhoun RN RN sg Anderson, Corey, MD MD cha Baxter, Heather, RN RN Corrections: (The following items were deleted from the chart) 13:40 13:25 03/12/2018 13:25 Discharged to Home. Impression: Abdominal tenderness; hb Gastrointestinal hemorrhage, unspecified - lower,rectal, stable. Condition is Stable. Discharge Instructions: Abdominal Pain, Adult, Gastrointestinal Bleeding, Rectal Bleeding, Abdominal Pain, Adult, [id number]. Prescriptions for Bentyl 20 mg Oral Tablet - take 1 tablet by ORAL route every 6 hours As needed; 20 tablet, Colace 100 mg Oral Tablet - take 1 tablet by ORAL route every 12 hours; 14 tablet, Flagyl 500 mg Oral Tablet - take 1 tablet by ORAL route every 12 hours for 7 days; 14 tablet, Cipro 500 mg Oral Tablet - take 1 tablet by ORAL route every 12 hours for 7 days; 14 tablet. and Forms are Medication Reconciliation Form, Thank You Letter, Antibiotic Education, Prescription Opioid Use. Follow up: Private Physician; When: 2 - 3 days; Reason: Recheck today's complaints, Continuance of care, Re-evaluation by your physician. Follow up: Boris Oneill; When: 2 - 3 days; Reason: Recheck today's complaints, Re-evaluation by your physician. Problem is new. Symptoms have improved. jeannette
[2018-03-12 13:56] VITALS: TEMP 98.2
[2018-03-12 13:57] VITALS: O2SAT 99
[2018-03-12 14:00] VITALS: BP 122/72
== END 2018-03-12 13:40 | disposition home or self-care (01) ==
LOC: ER 09:46
DX: K92.2 Gastrointestinal hemorrhage, unspecified (principal); Z72.0 Tobacco use; Z88.8 Allergy status to other drugs, medicaments and biological substances
CPT/HCPCS: 36415; 74177; 80048; 80076; 81003; 81025; 83690; 85025; 96365; 96368; 96375; 99284; J0744; J2270; J2405; J7030; Q9967

== ENCOUNTER 2018-05-31 08:01 | Emergency (ER) | payer SELFPAY ==
--- OUTSIDE RECORDS SUMMARY | 2018-05-31 08:03 | XMS REPORT ---
:1985 [facility] Address [address] [place] [address] Dr. Delaney. [address] [place] [id number] Care Team Providers Name Role Phone Unavailable Unavailable Unavailable Problems This patient has no known problems. Allergies, Adverse Reactions, Alerts This patient has no known allergies or adverse reactions. Medications This patient has no known medications.
[2018-05-31] MEDS ORDERED: ALBUTEROL 2.5 MG/3 ML NEB SOL ONE (09:13)
[2018-05-31] MEDS ORDERED: predniSONE 20 MG TAB ONE (09:14)
--- NOTE | 2018-05-31 09:45 | RAD REPORT ---
EXAM DESCRIPTION: Lisa Lee (2 Views)05/31/2018 9:10 am CLINICAL HISTORY: Cough COMPARISON: 2017 FINDINGS: The lungs appear clear of acute infiltrate. The heart is normal size IMPRESSION: No acute abnormalities displayed
--- NOTE | 2018-05-31 09:56 | ER ---
Nurse's Notes [facility] Name: Marcy Montiel Age: 32 yrs Sex: Female : 1985 Arrival Date: 05/31/2018 Time: 08:03 Bed 8 Private MD: None, None Diagnosis: Bronchitis, not specified as acute or chronic Presentation: 05/31 08:09 Presenting complaint: Patient states: cough, sore/itchy throat and nasal congestion x 1 ss week. Pt reports that her cough has been painful, but woke up at 0330 this morning with mid back pain and L sided chest pain just under L clavicle. Denies SOB/ fever. Transition of care: patient was not received from another setting of care. Resp Distress? No respiratory distress is noted at this time. Onset of symptoms was May 24, 2018. Risk Assessment: Do you want to hurt yourself or someone else? Patient reports no desire to harm self or others. Initial Sepsis Screen: Does the patient meet any 2 criteria? No. Patient's initial sepsis screen is negative. Does the patient have a suspected source of infection? No. Patient's initial sepsis screen is negative. Care prior to arrival: None. 08:09 Method Of Arrival: Ambulatory ss 08:09 Acuity: ZAINAB 4 ss Historical: - Allergies: 08:11 Benadryl; ss - Home Meds: 08:11 None [Active]; ss - PMHx: 08:11 None; ss - PSHx: 08:11 None; ss - Immunization history:: Adult Immunizations up to date. - Social history:: Smoking status: Patient uses tobacco products, smokes one-half pack cigarettes per day. - Ebola Screening: : Patient denies exposure to infectious person Patient denies travel to an Ebola-affected area in the 21 days before illness onset. Screenin:10 Abuse screen: Denies threats or abuse. Denies injuries from another. Nutritional sv screening: No deficits noted. Tuberculosis screening: No symptoms or risk factors identified. Fall Risk None identified. Assessment: 08:11 General: Appears in no apparent distress. uncomfortable, slender, well developed, sv Behavior is calm, cooperative, appropriate for age. Pain: Complains of pain in left lateral anterior chest Pain currently is 8 out of 10 on a pain scale. Neuro: Level of Consciousness is awake, alert, obeys commands, Oriented to person, place, time, situation, Moves all extremities. Full function Gait is steady, Speech is normal. Respiratory: Reports cough that is non-productive, Airway is patent Respiratory effort is even, unlabored, Respiratory pattern is regular, symmetrical. EENT: Reports pain in throat. Derm: Skin is pink, warm \T\ dry. 10:00 Reassessment: Patient appears in no apparent distress at this time. Patient and/or sv family updated on plan of care and expected duration. Pain level reassessed. Patient is alert, oriented x 3, equal unlabored respirations, skin warm/dry/pink. Patient states feeling better. Patient states symptoms have improved. Vital Signs: 08:11 BP 113 / 64; Pulse 72; Resp 17; Temp 98.0(O); Pulse Ox 99% on R/A; Weight 59.42 kg; ss Height 5 ft. 4 in. (162.56 cm); Pain 8/10; 09:29 BP 110 / 67; Pulse 83; Resp 18; Pulse Ox 100% ; sv 10:00 BP 118 / 68; Pulse 77; Resp 16; Pulse Ox 100% ; sv 08:11 Body Mass Index 22.49 (59.42 kg, 162.56 cm) ss ED Course: 08:03 Patient arrived in ED. as 08:03 None, None is Private Physician. as 08:05 Ervin Hutson NP is PHCP. pm1 08:05 Kamaljit Loya MD is Attending Physician. pm1 08:09 Heather Kohli RN is Primary Nurse. sv 08:09 Arm band placed on. sv 08:10 Triage completed. ss 08:10 Patient has correct armband on for positive identification. Placed in gown. Bed in low sv position. Call light in reach. Pulse ox on. NIBP on. Door closed. Head of bed elevated. 08:11 Awaiting ED provider evaluation. sv 09:10 Chest Pa And Lat (2 Views) XRAY In Process Unspecified. EDMS 10:08 No provider procedures requiring assistance completed. Patient did not have IV access hb during this emergency room visit. Administered Medications: 09:18 Drug: Albuterol 2.5 mg Route: Inhalation; sv 09:18 Drug: predniSONE 60 mg Route: PO; sv 10:00 Follow up: Response: No adverse reaction sv Outcome: 09:56 Discharge ordered by . pm1 10:08 Discharged to home ambulatory. hb 10:08 Condition: stable 10:08 Discharge instructions given to patient, Instructed on discharge instructions, follow up and referral plans. medication usage, Demonstrated understanding of instructions, follow-up care, medications, Prescriptions given X 3. 10:09 Patient left the ED. hb Signatures: Dispatcher [employer] EDMS Heather Kohli RN RN sv Martinez, Amelia as Smirch, Shelby, RN RN ss Ervin Hutson, PRESCHOOL PROGRAM DIRECTOR PRESCHOOL PROGRAM DIRECTOR pm1 Gema Yusuf RN RN hb
--- NOTE | 2018-05-31 09:56 | EDPHYS ---
Physician Documentation [facility] Name: Marcy Montiel Age: 32 yrs Sex: Female : 1985 Arrival Date: 05/31/2018 Time: 08:03 Bed 8 Private MD: None, None ED Physician Kamaljit Loya HPI: 05/31 09:05 This 32 yrs old Female presents to ER via Ambulatory with complaints of pm1 Congestion, Sore Throat, Back Pain, Chest Pain. 09:05 The patient or guardian reports cough, with productive sputum, that is yellow. Onset: pm1 The symptoms/episode began/occurred 1 week(s) ago. Severity of symptoms: in the emergency department the symptoms are actually worse. Modifying factors: The symptoms are alleviated by nothing, the symptoms are aggravated by nothing. Associated signs and symptoms: Pertinent positives: chest pain, with cough, sore throat, Pertinent negatives: fever. The patient has not experienced similar symptoms in the past. The patient has not recently seen a physician. Historical: - Allergies: 08:11 Benadryl; ss - Home Meds: 08:11 None [Active]; ss - PMHx: 08:11 None; ss - PSHx: 08:11 None; ss - Immunization history:: Adult Immunizations up to date. - Social history:: Smoking status: Patient uses tobacco products, smokes one-half pack cigarettes per day. - Ebola Screening: : Patient denies exposure to infectious person Patient denies travel to an Ebola-affected area in the 21 days before illness onset. ROS: 09:05 Constitutional: Negative for fever, chills, and weight loss, Eyes: Negative for injury, pm1 pain, redness, and discharge, Neck: Negative for injury, pain, and swelling. 09:05 Cardiovascular: Negative for chest pain, palpitations, and edema. 09:05 Abdomen/GI: Negative for abdominal pain, nausea, vomiting, diarrhea, and constipation, : Negative for injury, bleeding, discharge, and swelling. 09:05 MS/Extremity: Negative for injury and deformity, Skin: Negative for injury, rash, and discoloration, Neuro: Negative for headache, weakness, numbness, tingling, and seizure. 09:05 ENT: Positive for sore throat, Negative for ear pain, rhinorrhea, sinus congestion, sinus pain, difficulty swallowing, difficulty handling secretions, hoarseness. 09:05 Respiratory: Positive for cough, with yellow sputum. 09:05 Back: Positive for of the right subscapular area, pain. Exam: 09:05 Constitutional: This is a well developed, well nourished patient who is awake, alert, pm1 and in no acute distress. Head/Face: Normocephalic, atraumatic. Eyes: Pupils equal round and reactive to light, extra-ocular motions intact. Lids and lashes normal. Conjunctiva and sclera are non-icteric and not injected. Cornea within normal limits. Periorbital areas with no swelling, redness, or edema. ENT: Nares patent. No nasal discharge, no septal abnormalities noted. Tympanic membranes are normal and external auditory canals are clear. Oropharynx with no redness, swelling, or masses, exudates, or evidence of obstruction, uvula midline. Mucous membranes moist. Neck: Trachea midline, no thyromegaly or masses palpated, and no cervical lymphadenopathy. Supple, full range of motion without nuchal rigidity, or vertebral point tenderness. No Meningismus. Chest/axilla: Normal chest wall appearance and motion. Nontender with no deformity. No lesions are appreciated. Cardiovascular: Regular rate and rhythm with a normal S1 and S2. No gallops, murmurs, or rubs. Normal PMI, no JVD. No pulse deficits. Respiratory: Lungs have equal breath sounds bilaterally, clear to auscultation and percussion. No rales, rhonchi or wheezes noted. No increased work of breathing, no retractions or nasal flaring. Abdomen/GI: Soft, non-tender, with normal bowel sounds. No distension or tympany. No guarding or rebound. No evidence of tenderness throughout. 09:05 Skin: Warm, dry with normal turgor. Normal color with no rashes, no lesions, and no evidence of cellulitis. MS/ Extremity: Pulses equal, no cyanosis. Neurovascular intact. Full, normal range of motion. 09:05 Back: pain, that is mild, of the right subscapular area, normal spinal alignment noted. 09:05 Neuro: Orientation: is normal, Motor: moves all fours, strength is 5/5 in all extremities. Vital Signs: 08:11 BP 113 / 64; Pulse 72; Resp 17; Temp 98.0(O); Pulse Ox 99% on R/A; Weight 59.42 kg; ss Height 5 ft. 4 in. (162.56 cm); Pain 8/10; 09:29 BP 110 / 67; Pulse 83; Resp 18; Pulse Ox 100% ; sv 10:00 BP 118 / 68; Pulse 77; Resp 16; Pulse Ox 100% ; sv 08:11 Body Mass Index 22.49 (59.42 kg, 162.56 cm) ss MDM: 08:07 Patient medically screened. pm1 09:55 Data reviewed: vital signs. Data interpreted: Pulse oximetry: on room air is 100 %. pm1 Interpretation: normal. Counseling: I had a detailed discussion with the patient and/or guardian regarding: the historical points, exam findings, and any diagnostic results supporting the discharge/admit diagnosis, lab results, radiology results, the need for outpatient follow up, to return to the emergency department if symptoms worsen or persist or if there are any questions or concerns that arise at home. 05/31 08:46 Order name: Flu; Complete Time: 09:55 pm1 05/31 08:46 Order name: Strep; Complete Time: 09:36 pm1 05/31 08:46 Order name: Chest Pa And Lat (2 Views) XRAY; Complete Time: 09:55 pm1 05/31 09:27 Order name: Throat Culture EDMS Administered Medications: 09:18 Drug: Albuterol 2.5 mg Route: Inhalation; sv 09:18 Drug: predniSONE 60 mg Route: PO; sv 10:00 Follow up: Response: No adverse reaction sv Disposition: 05/31/18 09:56 Discharged to Home. Impression: Bronchitis, not specified as acute or chronic. - Condition is Stable. - Discharge Instructions: Acute Bronchitis, Adult, How to Use an Inhaler, Viral Respiratory Infection, [id number], Cough, Adult. - Prescriptions for Medrol (Melecio) 4 mg Oral Tablets, Dose Pack - take 1 tablet by ORAL route as directed - follow package instructions; 1 packet. Albuterol Sulfate 90 mcg/actuation - inhale 1-2 puff by INHALATION route every 4-6 hours; 1 Inhaler. Guaifenesin AC 10- 100 mg/5 mL Oral Liquid - take 10 milliliter by ORAL route every 4 hours As needed; 240 milliliter. - Medication Reconciliation Form, Thank You Letter, Antibiotic Education, Prescription Opioid Use form. - Follow up: Emergency Department; When: As needed; Reason: Worsening of condition. Follow up: Private Physician; When: 2 - 3 days; Reason: Recheck today's complaints, Continuance of care, Re-evaluation by your physician. - Problem is new. - Symptoms have improved. Addendum: 06/06/2018 06:45 Co-signature as Attending Physician, Kamlajit Loya MD I agree with the assessment and k dr plan of care. Signatures: Dispatcher [employer] EDHeather Arthur, RN RN Kamaljit Loya MD MD [facility] Lee Ann Kennedy RN RN ss Ervin Hutson NP [employer] pm1 Gema Yusuf RN RN hb Corrections: (The following items were deleted from the chart) 05/31 10:09 09:56 05/31/2018 09:56 Discharged to Home. Impression: Bronchitis, not specified as hb acute or chronic. Condition is Stable. Forms are Medication Reconciliation Form, Thank You Letter, Antibiotic Education, Prescription Opioid Use. Follow up: Emergency Department; When: As needed; Reason: Worsening of condition. Follow up: Private Physician; When: 2 - 3 days; Reason: Recheck today's complaints, Continuance of care, Re-evaluation by your physician. Problem is new. Symptoms have improved. pm1
[2018-05-31 10:14] VITALS: TEMP 98
[2018-05-31 10:15] VITALS: O2SAT 100
[2018-05-31 10:16] VITALS: BP 118/68
== END 2018-05-31 10:09 | disposition home or self-care (01) ==
LOC: ER 08:01
DX: J40 Bronchitis, not specified as acute or chronic (principal); F17.210 Nicotine dependence, cigarettes, uncomplicated
CPT/HCPCS: 71046; 87070; 87081; 87804; 99284; J7512

== ENCOUNTER 2018-09-25 20:12 | Emergency (ER) | payer SELFPAY ==
--- OUTSIDE RECORDS SUMMARY | 2018-09-25 20:14 | XMS REPORT ---
:1985 [facility] Address [address] [place] [address] Dr. Delaney. [address] [place] [id number] Care Team Providers Name Role Phone Unavailable Unavailable Unavailable Problems This patient has no known problems. Allergies, Adverse Reactions, Alerts This patient has no known allergies or adverse reactions. Medications This patient has no known medications.
[2018-09-25] MEDS ORDERED: IBUPROFEN 200 MG TAB PO ONE (20:52)
[2018-09-25] MEDS ORDERED: IBUPROFEN 400 MG TAB ONE (20:52)
[2018-09-25] MEDS ORDERED: AMOX/K CLAV 875 MG TAB ONE (20:53)
--- NOTE | 2018-09-25 20:54 | ER ---
Nurse's Notes [facility] Name: Marcy Montiel Age: 33 yrs Sex: Female : 1985 Arrival Date: 09/25/2018 Time: 20:15 Bed 14 Private MD: Diagnosis: Retained tooth;Dental caries;Dental alveolar anomalies;Dental caries, unspecified Presentation: 09/25 20:21 Presenting complaint: Patient states: left bottom tooth pain X4 days. pt c/o pain ak1 increased yesterday. pt c/o pain radiating up to the left muslim. Transition of care: patient was not received from another setting of care. Onset of symptoms is unknown. Risk Assessment: Do you want to hurt yourself or someone else? Patient reports no desire to harm self or others. Initial Sepsis Screen: Does the patient meet any 2 criteria? No. Patient's initial sepsis screen is negative. Does the patient have a suspected source of infection? No. Patient's initial sepsis screen is negative. Care prior to arrival: None. 20:21 Method Of Arrival: Ambulatory ak1 20:21 Acuity: ZAINAB 4 ak1 Triage Assessment: 20:23 General: Appears in no apparent distress. Behavior is calm, cooperative. Pain: ak1 Complains of pain in lower left third molar and lower left second molar. 20:24 EENT: Reports pain in mouth and lower left second molar and lower left third molar. 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 - Social history:: Smoking status: Patient uses tobacco products, smokes one-half pack cigarettes per day. - Ebola Screening: : No symptoms or risks identified at this time. - Family history:: not pertinent. Screenin:23 Abuse screen: Denies threats or abuse. Denies injuries from another. Nutritional ak1 screening: No deficits noted. Tuberculosis screening: No symptoms or risk factors identified. Fall Risk None identified. Assessment: 20:55 General: Appears in no apparent distress. uncomfortable, Behavior is calm, cooperative, jd3 appropriate for age. Pain: Complains of pain in left cheek and mouth and lower left second molar and lower left third molar. Neuro: Level of Consciousness is awake, alert, obeys commands, Oriented to person, place, time, situation. Cardiovascular: Capillary refill < 3 seconds Patient's skin is warm and dry. Respiratory: Airway is patent Respiratory effort is even, unlabored, Respiratory pattern is regular, symmetrical. GI: No signs and/or symptoms were reported involving the gastrointestinal system. : No signs and/or symptoms were reported regarding the genitourinary system. EENT: No signs and/or symptoms were reported regarding the EENT system. Derm: Skin is intact, Skin is dry, Skin is normal, Skin temperature is warm. Musculoskeletal: Circulation, motion, and sensation intact. Range of motion: intact in all extremities. 21:23 Reassessment: Patient appears in no apparent distress at this time. Patient and/or jd3 family updated on plan of care and expected duration. Pain level reassessed. Patient is alert, oriented x 3, equal unlabored respirations, skin warm/dry/pink. reported understanding of discharge instructions. even and steady gait upon discharge. Vital Signs: 20:21 BP 128 / 88; Pulse 74; Resp 16; Temp 97.3; Pulse Ox 100% on R/A; Weight 60.33 kg (R); ak1 Height 5 ft. 4 in. (162.56 cm) (R); Pain 8/10; 20:21 Body Mass Index 22.83 (60.33 kg, 162.56 cm) ak1 ED Course: 20:15 Patient arrived in ED. mr 20:21 Arm band placed on Patient placed in waiting room, Patient notified of wait time. ak1 20:22 Triage completed. ak1 20:23 Patient has correct armband on for positive identification. ak1 20:36 Oliver Conrad MD is Attending Physician. jeannette 20:52 Rosalino Corbin DDS is Referral Physician. jeannette 20:57 Mahin Mak, MARIA G is Primary Nurse. jd3 21:19 No provider procedures requiring assistance completed. Patient did not have IV access jd3 during this emergency room visit. Administered Medications: 20:57 Drug: Motrin 600 mg Route: PO; jd3 21:23 Follow up: Response: No adverse reaction jd3 20:57 Drug: Augmentin 875 mg Route: PO; jd3 21:23 Follow up: Response: No adverse reaction jd3 Outcome: 20:53 Discharge ordered by . jeannette 21:20 Discharged to home ambulatory. jd3 21:20 Condition: stable 21:20 Discharge instructions given to patient, Instructed on discharge instructions, follow up and referral plans. Demonstrated understanding of instructions, follow-up care, medications, Prescriptions given X 2. 21:24 Patient left the ED. jd3 Signatures: Oliver Conrad MD MD cha Rivera, Rina RonnydiliaAshia, RN RN ak1 Mahin Mak RN RN jd3 Corrections: (The following items were deleted from the chart) 21:23 20:55 Reassessment: Patient appears in no apparent distress at this time. Patient jd3 and/or family updated on plan of care and expected duration. Pain level reassessed. Patient is alert, oriented x 3, equal unlabored respirations, skin warm/dry/pink. reported understanding of discharge instructions. even and steady gait upon discharge. jd3
--- NOTE | 2018-09-25 20:54 | EDPHYS ---
Physician Documentation [facility] Name: Marcy Montiel Age: 33 yrs Sex: Female : 1985 Arrival Date: 09/25/2018 Time: 20:15 Bed 14 Private MD: ISMAEL Physician Oliver Conrad HPI: 09/25 20:49 This 33 yrs old Female presents to ER via Ambulatory with complaints of jeannette Toothache. 20:49 The patient presents with broken tooth/teeth, pain, redness. The problem is located in [facility] the lower left third molar. Onset: The symptoms/episode began/occurred 3 day(s) ago. Modifying factors: The symptoms are alleviated by nothing, the symptoms are aggravated by nothing. Associated signs and symptoms: The patient has no apparent associated signs or symptoms. Severity of symptoms: At their worst the symptoms were. The patient has not experienced similar symptoms in the past. 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 - Social history:: Smoking status: Patient uses tobacco products, smokes one-half pack cigarettes per day. - Ebola Screening: : No symptoms or risks identified at this time. - Family history:: not pertinent. ROS: 20:49 Constitutional: Negative for fever, chills, and weight loss, Eyes: Negative for injury, jeannette pain, redness, and discharge, Neck: Negative for injury, pain, and swelling, Cardiovascular: Negative for chest pain, palpitations, and edema, Respiratory: Negative for shortness of breath, cough, wheezing, and pleuritic chest pain, Abdomen/GI: Negative for abdominal pain, nausea, vomiting, diarrhea, and constipation, Back: Negative for injury and pain, : Negative for injury, bleeding, discharge, and swelling, MS/Extremity: Negative for injury and deformity, Skin: Negative for injury, rash, and discoloration, Neuro: Negative for headache, weakness, numbness, tingling, and seizure, Psych: Negative for depression, anxiety, suicide ideation, homicidal ideation, and hallucinations, Allergy/Immunology: Negative for hives, rash, and allergies, Endocrine: Negative for neck swelling, polydipsia, polyuria, polyphagia, and marked weight changes, Hematologic/Lymphatic: Negative for swollen nodes, abnormal bleeding, and unusual bruising. 20:49 ENT: Positive for Gum pain Exam: 20:49 Constitutional: This is a well developed, well nourished patient who is awake, alert, jeannette and in no acute distress. Eyes: Pupils equal round and reactive to light, extra-ocular motions intact. Lids and lashes normal. Conjunctiva and sclera are non-icteric and not injected. Cornea within normal limits. Periorbital areas with no swelling, redness, or edema. ENT: Nares patent. No nasal discharge, no septal abnormalities noted. Tympanic membranes are normal and external auditory canals are clear. Oropharynx with no redness, swelling, or masses, exudates, or evidence of obstruction, uvula midline. Mucous membranes moist. Neck: Trachea midline, no thyromegaly or masses palpated, and no cervical lymphadenopathy. Supple, full range of motion without nuchal rigidity, or vertebral point tenderness. No Meningismus. Chest/axilla: Normal chest wall appearance and motion. Nontender with no deformity. No lesions are appreciated. Cardiovascular: Regular rate and rhythm with a normal S1 and S2. No gallops, murmurs, or rubs. Normal PMI, no JVD. No pulse deficits. Respiratory: Lungs have equal breath sounds bilaterally, clear to auscultation and percussion. No rales, rhonchi or wheezes noted. No increased work of breathing, no retractions or nasal flaring. Abdomen/GI: Soft, non-tender, with normal bowel sounds. No distension or tympany. No guarding or rebound. No evidence of tenderness throughout. Back: No spinal tenderness. No costovertebral tenderness. Full range of motion. Skin: Warm, dry with normal turgor. Normal color with no rashes, no lesions, and no evidence of cellulitis. MS/ Extremity: Pulses equal, no cyanosis. Neurovascular intact. Full, normal range of motion. Neuro: Awake and alert, GCS 15, oriented to person, place, time, and situation. Cranial nerves II-XII grossly intact. Motor strength 5/5 in all extremities. Sensory grossly intact. Cerebellar exam normal. Normal gait. 20:49 Head/face: Noted is dental pain. Vital Signs: 20:21 BP 128 / 88; Pulse 74; Resp 16; Temp 97.3; Pulse Ox 100% on R/A; Weight 60.33 kg (R); ak1 Height 5 ft. 4 in. (162.56 cm) (R); Pain 8/10; 20:21 Body Mass Index 22.83 (60.33 kg, 162.56 cm) ak1 MDM: 20:[address] [facility] 20:52 Data reviewed: vital signs, nurses notes. [facility] Administered Medications: 20:57 Drug: Motrin 600 mg Route: PO; jd3 21:23 Follow up: Response: No adverse reaction j 20:57 Drug: Augmentin 875 mg Route: PO; jd3 21:23 Follow up: Response: No adverse reaction jd3 Disposition: 09/25/18 20:53 Discharged to Home. Impression: Retained tooth, Dental caries, Dental alveolar anomalies, Dental caries, unspecified. - Condition is Stable. - Discharge Instructions: Dental Caries, Adult, Dental Pain, Dental Pain, [id number], Diet and Dental Disease, Dental Caries, [id number]. - Prescriptions for Keflex 500 mg Oral Capsule - take 1 capsule by ORAL route every 6 hours for 7 days; 28 capsule. Tylenol- Codeine #3 300-30 mg Oral Tablet - take 2 tablet by ORAL route every 6 hours As needed; 30 tablet. - Medication Reconciliation Form, Thank You Letter, Antibiotic Education, Prescription Opioid Use form. - Follow up: Private Physician; When: 2 - 3 days; Reason: Recheck today's complaints, Continuance of care, Re-evaluation by your physician. Follow up: Rosalino Corbin DDS; When: 2 - 3 days; Reason: Recheck today's complaints, Re-evaluation by your physician. - Problem is new. - Symptoms have improved. Signatures: Oliver Conrad MD MD cha Krenek, Amber RN RN ak1 Mahin Mak RN RN jd3 Corrections: (The following items were deleted from the chart) 21:24 20:53 09/25/2018 20:53 Discharged to Home. Impression: Retained tooth; Dental caries; jd3 Dental alveolar anomalies; Dental caries, unspecified. Condition is Stable. Forms are Medication Reconciliation Form, Thank You Letter, Antibiotic Education, Prescription Opioid Use. Follow up: Private Physician; When: 2 - 3 days; Reason: Recheck today's complaints, Continuance of care, Re-evaluation by your physician. Follow up: Rosalino Corbin; When: 2 - 3 days; Reason: Recheck today's complaints, Re-evaluation by your physician. Problem is new. Symptoms have improved. jeannette
[2018-09-25 22:53] VITALS: BP 128/88; TEMP 97.3; O2SAT 100
== END 2018-09-25 21:24 | disposition home or self-care (01) ==
LOC: ER 20:12
DX: K02.61 Dental caries on smooth surface limited to enamel (principal); M26.79 Other specified alveolar anomalies; K00.6 Disturbances in tooth eruption; F17.210 Nicotine dependence, cigarettes, uncomplicated; Z88.8 Allergy status to other drugs, medicaments and biological substances
CPT/HCPCS: 99283

== ENCOUNTER 2018-12-04 17:37 | Emergency (ER) | payer SELFPAY ==
[2018-12-04 18:27] LABS: Urine Blood NEGATIVE (NEG); Urine Glucose NEGATIVE (NEG); Urine Protein NEGATIVE (NEG); Urine Specific Gravity 1.025 (1.005-1.030); Urine pH 6.5 (5.0-7.0)
[2018-12-04 19:02] LABS: Urine Bacteria 20-50 /HPF (<20); Urine Culture Reflex Order REFLEXED
--- NOTE | 2018-12-04 19:46 | RAD REPORT ---
EXAM DESCRIPTION: US - Extremity Nonvascular Limited - 12/04/2018 7:41 pm CLINICAL HISTORY: right breast swelling COMPARISON: <Comparisons> TECHNIQUE: Real-time sonographic evaluation of the area of interest was performed upper outer quadra nt right breast. FINDINGS: No mass or cyst identified. Negative imaging studies should not delay biopsy of a clinically suspicious palpable lesion.
--- NOTE | 2018-12-04 20:01 | EDPHYS ---
Physician Documentation [facility] Name: Marcy Montiel Age: 33 yrs Sex: Female : 1985 Arrival Date: 12/04/2018 Time: 17:38 Bed Ultrasound Private MD: ED Physician Oliver Conrad HPI: 12/04 18:10 This 33 yrs old Female presents to ER via Ambulatory with complaints of Sore cp Throat, Urinary Problem. 18:10 The patient presents with sore throat. cp 18:10 The patient describes throat pain as constant. Onset: The symptoms/episode cp began/occurred yesterday. Severity of symptoms: in the emergency department the symptoms are unchanged. Associated signs and symptoms: Pertinent positives: cough, diarrhea, urinary frequency, Pertinent negatives earache, fever, vomiting. Patient reports noticing lump in right breast yesterday. 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 - Social history:: Smoking status: . - Ebola Screening: : Patient denies travel to an Ebola-affected area in the 21 days before illness onset. ROS: 18:20 Constitutional: Negative for body aches, chills, fever, poor PO intake. cp 18:20 Eyes: Negative for injury, pain, redness, and discharge. cp 18:20 ENT: Positive for sore throat, Negative for drainage from ear(s), ear pain, sinus pain, difficulty swallowing, difficulty handling secretions. 18:20 Cardiovascular: Negative for chest pain. 18:20 Respiratory: Positive for cough, Negative for shortness of breath, wheezing. 18:20 Abdomen/GI: Positive for diarrhea, Negative for abdominal pain, vomiting, constipation, black/tarry stool, rectal bleeding. 18:20 Skin: Positive for swelling, of the right breast, lump. 18:20 Neuro: Negative for altered mental status, dizziness, numbness, acute changes. 18:20 All other systems are negative. Exam: 18:25 Constitutional: The patient appears in no acute distress, alert, awake, non-toxic, well cp developed, well nourished. 18:25 Head/Face: Normocephalic, atraumatic. cp 18:25 Eyes: Periorbital structures: appear normal, Conjunctiva: normal, no exudate, no injection, Sclera: no appreciated abnormality, Lids and lashes: appear normal, bilaterally. 18:25 ENT: External ear(s): are unremarkable, Ear canal(s): are normal, clear, TM's: bulging, is not appreciated, bilaterally, dullness, bilaterally, erythema, is not appreciated, bilaterally, Nose: is normal, Mouth: Lips: moist, Oral mucosa: pink and intact, moist, Posterior pharynx: Airway: no evidence of obstruction, patent, Tonsils: are normal in appearance, swelling, is not appreciated, erythema, is not appreciated, exudate, is not appreciated. 18:25 Neck: ROM/movement: is normal, is supple, without pain, no range of motions limitations, no meningismus, no nuchal rigidity, Lymph nodes: no appreciated lymphadenopathy. 18:25 Chest/axilla: Inspection: Palpation: is normal, no crepitus, no tenderness, Breasts: cellulitis, is not appreciated, mass(es), that is moderate-sized, in the right breast, that is non-tender, that is fixed, nipple discharge, is not appreciated, Lymph nodes: lymphadenopathy is not appreciated. 18:25 Cardiovascular: Rate: normal, Rhythm: regular. 18:25 Respiratory: the patient does not display signs of respiratory distress, Respirations: normal, no use of accessory muscles, no retractions, no splinting, no tachypnea, labored breathing, is not present, Breath sounds: decreased breath sounds, are not appreciated, stridor, is not appreciated, + upper airway congestion. wheezing: is not appreciated. 18:25 Abdomen/GI: Inspection: abdomen appears normal, Palpation: abdomen is soft and non-tender, in all quadrants. 18:25 Skin: cellulitis, is not appreciated. Vital Signs: 17:42 BP 121 / 80; Pulse 79; Resp 16; Temp 98(O); Pulse Ox 99% ; Weight 53.07 kg; Height 5 sv ft. 0 in. (152.40 cm); 17:42 Body Mass Index 22.85 (53.07 kg, 152.40 cm) sv MDM: 18:02 Patient medically screened. cp 19:00 Differential diagnosis: bronchitis, epiglottitis, group A strep tonsillitis, influenza, cp mononucleosis, pharyngitis, tonsillitis, uvulitis. 20:00 Data reviewed: vital signs, nurses notes, lab test result(s), radiologic studies, cp ultrasound, and as a result, I will discharge patient. 20:00 Counseling: I had a detailed discussion with the patient and/or guardian regarding: the cp historical points, exam findings, and any diagnostic results supporting the discharge/admit diagnosis, lab results, radiology results, the need for outpatient follow up, a general surgeon, to return to the emergency department if symptoms worsen or persist or if there are any questions or concerns that arise at home. 12/04 18:08 Order name: Urine Dipstick--Ancillary (enter results); Complete Time: 19:08 bd 12/04 18:08 Order name: Urine --Ancillary (enter results); Complete Time: 19:08 bd 12/04 18:09 Order name: Strep; Complete Time: 19:08 cp 12/04 18:09 Order name: Urine Microscopic Only; Complete Time: 19:08 cp 12/04 19:09 Interpretation: Normal except: UWBC 5-10; URBC 5-10; UBACT 20-50; SQEPI 10-20. 12/04 18:09 Order name: Influenza Screen (a \T\ B); Complete Time: 19:08 cp 12/04 18:46 Order name: Throat Culture EDMS 12/04 18:09 Order name: Urine Dipstick-Ancillary (obtain specimen); Complete Time: 18:11 cp 12/04 18:09 Order name: Urine Test (obtain specimen); Complete Time: 18:11 cp 12/04 18:33 Order name: US Extrmty Nonvasular Limited; Complete Time: 19:54 cp 12/04 19:04 Order name: Urine Culture EDMS Administered Medications: No medications were administered Disposition: 12/04/18 20:01 Discharged to Home. Impression: Unspecified symptoms and signs involving the genitourinary system - frequency, Acute pharyngitis, Localized swelling, mass and lump, unspecified - right breast. - Condition is Stable. - Discharge Instructions: Breast Self-Awareness, Pharyngitis, Sore Throat, Urinary Frequency, Adult. - Work release form, Medication Reconciliation Form, Thank You Letter, Antibiotic Education, Prescription Opioid Use form. - Follow up: Private Physician; When: 2 - 3 days; Reason: sore throat, urinary frequency. Follow up: Gray Lubin MD; When: 1 - 2 days; Reason: right upper breast mass. - Problem is new. - Symptoms have improved. Addendum: 12/06/2018 07:21 Co-signature as Attending Physician, Oliver Conrad MD I agree with the assessment and c palomares plan of care. 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 Signatures: Dispatcher [employer] EDCheryl Xiao RN RN aj1 Heather Kohli RN Oliver Duvall MD MD cha Page, Corey, PA PA cp Wise, Tara RN RN tw2 Corrections: (The following items were deleted from the chart) 12/04 20:11 20:01 12/04/2018 20:01 Discharged to Home. Impression: Unspecified symptoms and signs aj1 involving the genitourinary system - frequency; Acute pharyngitis; Localized swelling, mass and lump, unspecified - right breast. Condition is Stable. Forms are Medication Reconciliation Form, Thank You Letter, Antibiotic Education, Prescription Opioid Use. Follow up: Private Physician; When: 2 - 3 days; Reason: sore throat, urinary frequency. Follow up: Gray Lubin; When: 1 - 2 days; Reason: right upper breast mass. Problem is new. Symptoms have improved. cp
--- NOTE | 2018-12-04 20:01 | ER ---
Nurse's Notes [facility] Name: aMrcy Montiel Age: 33 yrs Sex: Female : 1985 Arrival Date: 12/04/2018 Time: 17:38 Bed Ultrasound Private MD: Diagnosis: Unspecified symptoms and signs involving the genitourinary system-frequency;Acute pharyngitis;Localized swelling, mass and lump, unspecified-right breast Presentation: 12/04 17:42 Presenting complaint: Patient states: sore throat, urinary frequency, diarrhea x 2 sv days. Transition of care: patient was not received from another setting of care. Onset of symptoms was November 2018. Risk Assessment: Do you want to hurt yourself or someone else? Patient reports no desire to harm self or others. Initial Sepsis Screen: Does the patient meet any 2 criteria? No. Patient's initial sepsis screen is negative. Does the patient have a suspected source of infection? No. Patient's initial sepsis screen is negative. Care prior to arrival: None. 17:42 Method Of Arrival: Ambulatory sv 17:42 Acuity: ZAINAB 3 sv Triage Assessment: 17:42 General: Appears in no apparent distress. uncomfortable, Behavior is calm, cooperative, sv appropriate for age. Pain: Complains of pain in throat. EENT: Reports pain in throat when swallowing. Neuro: Level of Consciousness is awake, alert, obeys commands, Gait is steady. Respiratory: Respiratory effort is even, unlabored, Respiratory pattern is regular, symmetrical. GI: Reports loose stools. : Reports urinary frequency. 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 - Social history:: Smoking status: . - Ebola Screening: : Patient denies travel to an Ebola-affected area in the 21 days before illness onset. Screenin:09 Abuse screen: Denies threats or abuse. Nutritional screening: No deficits noted. tw2 Tuberculosis screening: No symptoms or risk factors identified. Fall Risk None identified. Assessment: 18:16 General: Appears in no apparent distress. slender, Behavior is calm, cooperative, tw2 appropriate for age. Pain: Complains of pain in uvula, left aspect of posterior pharynx and right aspect of posterior pharynx. Neuro: Level of Consciousness is awake, alert, obeys commands, Oriented to person, place, time, situation. Cardiovascular: Heart tones S1 S2 Patient's skin is warm and dry. Respiratory: Airway is patent Respiratory effort is even, unlabored, Respiratory pattern is regular, symmetrical, Breath sounds are clear bilaterally. GI: No signs and/or symptoms were reported involving the gastrointestinal system. : Reports burning with urination, urinary frequency. EENT: Throat is reddened. Derm: Reports "i have a lump on my RIGHT breast i need them to look at as well", provider notified, pt placed in gown at this time. Musculoskeletal: Range of motion: intact in all extremities. 19:01 Reassessment: Patient appears in no apparent distress at this time. No changes from aj1 previously documented assessment. Patient and/or family updated on plan of care and expected duration. Pain level reassessed. Patient is alert, oriented x 3, equal unlabored respirations, skin warm/dry/pink. 20:11 Reassessment: Patient appears in no apparent distress at this time. No changes from aj1 previously documented assessment. Patient and/or family updated on plan of care and expected duration. Pain level reassessed. Patient is alert, oriented x 3, equal unlabored respirations, skin warm/dry/pink. Vital Signs: 17:42 BP 121 / 80; Pulse 79; Resp 16; Temp 98(O); Pulse Ox 99% ; Weight 53.07 kg; Height 5 sv ft. 0 in. (152.40 cm); 17:42 Body Mass Index 22.85 (53.07 kg, 152.40 cm) sv ED Course: 17:38 Patient arrived in ED. mr 17:43 Triage completed. sv 17:43 Arm band placed on. sv 17:58 Bed in low position. Call light in reach. tw2 18:00 Jessica Ontiveros RN is Primary Nurse. tw2 18:01 Oliver Jackson PA is PHCP. cp 18:01 Oliver Conrad MD is Attending Physician. cp 18:16 Urine Microscopic Only Sent. tw2 18:16 Influenza Screen (a \\T\\ B) Sent. tw2 18:16 Strep Sent. 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 tw2 19:22 Report given to MARIA G Johnson. tw2 19:41 US Extrmty Nonvasular Limited In Process Unspecified. EDMS 19:55 Ultrasound completed. Patient moved back from ultrasound. ck 19:59 Gray Lubin MD is Referral Physician. cp 20:11 Patient did not have IV access during this emergency room visit. aj1 Administered Medications: No medications were administered Outcome: 20:01 Discharge ordered by MD. cp 20:11 Discharged to home ambulatory. aj1 20:11 Condition: good 20:11 Discharge instructions given to patient, Instructed on discharge instructions, follow up and referral plans. Demonstrated understanding of instructions, follow-up care. 20:11 Patient left the ED. aj1 Signatures: Dispatcher [employer] EDMS Cheryl Morgan RN RN aj1 Heather Kohli RN RN sv Rivera, Mary mr Page, Corey, PA PA cp Jessica Ontiveros RN RN tw2 Marina Donaldson ck
[2018-12-04 21:57] VITALS: BP 121/80; TEMP 98; O2SAT 99
== END 2018-12-04 20:11 | disposition home or self-care (01) ==
LOC: ER 17:37
DX: J02.9 Acute pharyngitis, unspecified (principal); R22.2 Localized swelling, mass and lump, trunk; N63.0 Unspecified lump in unspecified breast; R35.0 Frequency of micturition; Z88.0 Allergy status to penicillin; Z88.8 Allergy status to other drugs, medicaments and biological substances
CPT/HCPCS: 76882; 81003; 81015; 81025; 87070; 87081; 87086; 87088; 87804; 99284

== ENCOUNTER 2018-12-28 23:25 | Emergency (ER) | payer SELFPAY ==
--- OUTSIDE RECORDS SUMMARY | 2018-12-28 23:27 | XMS REPORT ---
:1985 [facility] Address [address] [place] [address] Dr. Delaney. [address] [place] [id number] Care Team Providers Name Role Phone Unavailable Unavailable Unavailable Problems This patient has no known problems. Allergies, Adverse Reactions, Alerts This patient has no known allergies or adverse reactions. Medications This patient has no known medications.
[2018-12-29] MEDS ORDERED: NITROFURAN MACRO 100 MG CAP PO ONE (00:22)
[2018-12-29] MEDS ORDERED: DICYCLOMINE HCL 10 MG CAP ONE (00:22)
[2018-12-29 00:43] LABS: Urine Blood NEGATIVE (NEG); Urine Glucose NEGATIVE (NEG); Urine Protein NEGATIVE (NEG); Urine Specific Gravity >1.030 (1.005-1.030)
--- NOTE | 2018-12-29 00:59 | ER ---
Nurse's Notes [facility] Name: Marcy Montiel Age: 33 yrs Sex: Female : 1985 Arrival Date: 12/28/2018 Time: 23:29 Bed 8 Private MD: Diagnosis: Abdominal tenderness;Constipation;Dysuria Presentation: 12/28 23:43 Presenting complaint: Patient states: Reports she started having pressure after ea urinating, abdominal pressure that radiates to back, frequency and leaking that started today. Transition of care: patient was not received from another setting of care. Onset of symptoms was December 28, 2018. Risk Assessment: Do you want to hurt yourself or someone else? Patient reports no desire to harm self or others. Initial Sepsis Screen: Does the patient meet any 2 criteria? No. Patient's initial sepsis screen is negative. Does the patient have a suspected source of infection? No. Patient's initial sepsis screen is negative. Care prior to arrival: None. 23:43 Method Of Arrival: Ambulatory ea 23:43 Acuity: ZAINAB 3 ea Historical: - Allergies: 23:49 Benadryl; ea 23:49 diphenhydramine HCl; ea 23:49 PENICILLINS; ea - Home Meds: 23:49 None [Active]; ea - PMHx: 23:49 None; ea - PSHx: 23:49 None; ea - Immunization history:: Adult Immunizations up to date. - Social history:: Smoking status: Patient/guardian denies using tobacco. - Ebola Screening: : No symptoms or risks identified at this time. - Family history:: not pertinent. Screenin:41 Abuse screen: Denies threats or abuse. Nutritional screening: No deficits noted. bb Tuberculosis screening: No symptoms or risk factors identified. Fall Risk None identified. Assessment: 23:41 General: Appears in no apparent distress. slender, Behavior is calm, cooperative. Pain: bb Denies pain. Neuro: Level of Consciousness is awake, alert, obeys commands, Oriented to person, place, time, situation. Cardiovascular: Heart tones S1 S2 present Capillary refill < 3 seconds Patient's skin is warm and dry. Respiratory: Airway is patent Respiratory effort is even, unlabored, Respiratory pattern is regular. GI: Abdomen is round Bowel sounds present X 4 quads. Abd is soft and non tender X 4 quads. : Reports urgency, pressure after urinating. Derm: Skin is pink, warm \T\ dry. Musculoskeletal: Circulation, motion, and sensation intact. 12/29 00:31 Reassessment: Patient and/or family updated on plan of care and expected duration. Pain ea level reassessed. Patient is alert, oriented x 3, equal unlabored respirations, skin warm/dry/pink. 01:25 Reassessment: Patient and/or family updated on plan of care and expected duration. Pain ea level reassessed. Patient is alert, oriented x 3, equal unlabored respirations, skin warm/dry/pink. Discharge instruction given to patient, verbalized the understanding of instruction. Pt left ED ambulatory accompanied by family, tolerating well. Vital Signs: 12/28 23:49 BP 119 / 85; Pulse 78; Resp 18; Temp 97.7; Pulse Ox 100% on R/A; Weight 53.07 kg; ea Height 5 ft. 4 in. (162.56 cm); 12/29 00:50 BP 120 / 78; Pulse 70; Resp 18; Pulse Ox 99% ; ea 12/28 23:49 Body Mass Index 20.08 (53.07 kg, 162.56 cm) ea ED Course: 12/28 23:29 Patient arrived in ED. cf2 23:35 Oliver Conrad MD is Attending Physician. jeannette 23:41 Patient has correct armband on for positive identification. Bed in low position. Call bb light in reach. Side rails up X 1. Pulse ox on. NIBP on. 23:48 Triage completed. ea 23:49 Arm band placed on right wrist. Patient placed in an exam room, on a stretcher, on ea pulse oximetry. 12/29 00:19 Maria Del Rosario Christopher, MARIA G is Primary Nurse. bb 01:26 No provider procedures requiring assistance completed. Patient did not have IV access ea during this emergency room visit. 02:04 Abdomen 1 View (KUB) XRAY In Process Unspecified. EDMS Administered Medications: 00:27 Drug: Nitrofurantoin 100 mg Route: PO; bb 01:27 Follow up: Response: No adverse reaction ea 00:27 Drug: Bentyl 20 mg Route: PO; bb 01:26 Follow up: Response: No adverse reaction ea Outcome: 00:58 Discharge ordered by . jeannette 01:26 Discharged to home ambulatory. maria elena 01:26 Condition: stable 01:26 Discharge instructions given to patient, Instructed on discharge instructions, follow up and referral plans. medication usage, Demonstrated understanding of instructions, follow-up care, medications, Prescriptions given X 3. 01:27 Patient left the ED. maria elena Signatures: Dispatcher [employer] EDMS Oliver Conrad MD MD cha Ballard, Brenda RN Fany Schneider RN Cici Celestin ea 2
--- NOTE | 2018-12-29 00:59 | EDPHYS ---
Physician Documentation [facility] Name: Marcy Montiel Age: 33 yrs Sex: Female : 1985 Arrival Date: 12/28/2018 Time: 23:29 Bed 8 Private MD: ISMAEL Physician Oliver Conrad HPI: 12/29 00:54 This 33 yrs old Female presents to ER via Ambulatory with complaints of Back jeannette Pain, Abdominal Pain, Vaginal Pain, Nausea. 00:54 The patient presents with pain that is acute, with no known mechanism of injury. The jeannette symptoms are located in the low back, lumbar area, left low back and right low back. Onset: The symptoms/episode began/occurred 3 day(s) ago. The pain does not radiate. Associated signs and symptoms: Pertinent positives: dysuria. The problem was sustained from unknown cause. Modifying factors: The patient symptoms are alleviated by nothing, the patient symptoms are aggravated by lifting, movement, playing sports. The patient has not experienced similar symptoms in the past. Historical: - Allergies: 12/28 23:49 Benadryl; ea 23:49 diphenhydramine HCl; ea 23:49 PENICILLINS; ea - Home Meds: 23:49 None [Active]; ea - PMHx: 23:49 None; ea - PSHx: 23:49 None; ea - Immunization history:: Adult Immunizations up to date. - Social history:: Smoking status: Patient/guardian denies using tobacco. - Ebola Screening: : No symptoms or risks identified at this time. - Family history:: not pertinent. ROS: 12/29 00:54 Constitutional: Negative for fever, chills, and weight loss, Eyes: Negative for injury, jeannette pain, redness, and discharge, ENT: Negative for injury, pain, and discharge, Neck: Negative for injury, pain, and swelling, Cardiovascular: Negative for chest pain, palpitations, and edema, Respiratory: Negative for shortness of breath, cough, wheezing, and pleuritic chest pain, Back: Negative for injury and pain, : Negative for injury, bleeding, discharge, and swelling, MS/Extremity: Negative for injury and deformity, Skin: Negative for injury, rash, and discoloration, Neuro: Negative for headache, weakness, numbness, tingling, and seizure, Psych: Negative for depression, anxiety, suicide ideation, homicidal ideation, and hallucinations, Allergy/Immunology: Negative for hives, rash, and allergies, Endocrine: Negative for neck swelling, polydipsia, polyuria, polyphagia, and marked weight changes, Hematologic/Lymphatic: Negative for swollen nodes, abnormal bleeding, and unusual bruising. Abdomen/GI: Positive for abdominal pain, nausea and vomiting, of the suprapubic area, right lower quadrant and left lower quadrant. Exam: 00:54 Constitutional: This is a well developed, well nourished patient who is awake, alert, jeannette and in no acute distress. Head/Face: Normocephalic, atraumatic. Eyes: Pupils equal round and reactive to light, extra-ocular motions intact. Lids and lashes normal. Conjunctiva and sclera are non-icteric and not injected. Cornea within normal limits. Periorbital areas with no swelling, redness, or edema. ENT: Nares patent. No nasal discharge, no septal abnormalities noted. Tympanic membranes are normal and external auditory canals are clear. Oropharynx with no redness, swelling, or masses, exudates, or evidence of obstruction, uvula midline. Mucous membranes moist. Neck: Trachea midline, no thyromegaly or masses palpated, and no cervical lymphadenopathy. Supple, full range of motion without nuchal rigidity, or vertebral point tenderness. No Meningismus. Chest/axilla: Normal chest wall appearance and motion. Nontender with no deformity. No lesions are appreciated. Cardiovascular: Regular rate and rhythm with a normal S1 and S2. No gallops, murmurs, or rubs. Normal PMI, no JVD. No pulse deficits. Respiratory: Lungs have equal breath sounds bilaterally, clear to auscultation and percussion. No rales, rhonchi or wheezes noted. No increased work of breathing, no retractions or nasal flaring. Back: No spinal tenderness. No costovertebral tenderness. Full range of motion. Female : Normal external genitalia. Skin: Warm, dry with normal turgor. Normal color with no rashes, no lesions, and no evidence of cellulitis. MS/ Extremity: Pulses equal, no cyanosis. Neurovascular intact. Full, normal range of motion. Neuro: Awake and alert, GCS 15, oriented to person, place, time, and situation. Cranial nerves II-XII grossly intact. Motor strength 5/5 in all extremities. Sensory grossly intact. Cerebellar exam normal. Normal gait. Psych: Awake, alert, with orientation to person, place and time. Behavior, mood, and affect are within normal limits. 00:54 Abdomen/GI: Inspection: abdomen appears normal, Bowel sounds: normal, Palpation: mild abdominal tenderness, in the suprapubic area, right lower quadrant and left lower quadrant. Vital Signs: 12/28 23:49 BP 119 / 85; Pulse 78; Resp 18; Temp 97.7; Pulse Ox 100% on R/A; Weight 53.07 kg; ea Height 5 ft. 4 in. (162.56 cm); 12/29 00:50 BP 120 / 78; Pulse 70; Resp 18; Pulse Ox 99% ; ea 12/28 23:49 Body Mass Index 20.08 (53.07 kg, 162.56 cm) ea MDM: 12/28 23:34 Patient medically screened. [facility] 23:35 Patient medically screened. [facility] 12/29 00:57 Data reviewed: vital signs, nurses notes, lab test result(s), urinalysis, radiologic jeannette studies. 12/28 23:52 Order name: Urine Culture [facility] 12/29 00:19 Order name: Urine Dipstick--Ancillary (enter results); Complete Time: 00:57 [facility] 12/29 00:19 Order name: Abdomen 1 View (KUB) XRAY [facility] 12/29 00:19 Order name: Urine --Ancillary (enter results); Complete Time: 00:57 [facility] 12/28 23:52 Order name: Urine Dipstick-Ancillary (obtain specimen); Complete Time: 23:52 [facility] 12/28 23:52 Order name: Urine Test (obtain specimen); Complete Time: 23:52 [facility] Administered Medications: 00:27 Drug: Nitrofurantoin 100 mg Route: PO; bb 01:27 Follow up: Response: No adverse reaction ea 00:27 Drug: Bentyl 20 mg Route: PO; bb 01:26 Follow up: Response: No adverse reaction ea Disposition: 12/29/18 00:58 Discharged to Home. Impression: Abdominal tenderness, Constipation, Dysuria. - Condition is Stable. - Discharge Instructions: Abdominal Pain, Adult, Constipation, Adult, Dysuria, Nausea and Vomiting, Adult, Abdominal Pain, Adult, [id number]. - Prescriptions for Bentyl 20 mg Oral Tablet - take 1 tablet by ORAL route every 6 hours As needed; 20 tablet. Colace 100 mg Oral Tablet - take 1 tablet by ORAL route every 12 hours; 14 tablet. Macrobid 100 mg Oral Capsule - take 1 capsule by ORAL route every 12 hours for 7 days; 14 capsule. - Medication Reconciliation Form, Thank You Letter, Antibiotic Education, Prescription Opioid Use, Work release form form. - Follow up: Private Physician; When: 2 - 3 days; Reason: Recheck today's complaints, Continuance of care, Re-evaluation by your physician. - Problem is new. - Symptoms have improved. Signatures: Dispatcher [employer] EDPR Oliver Conrad MD MD cha Ballard, Brenda RN RN Fany Mcmullen RN RN maria elena Corrections: (The following items were deleted from the chart) 01:27 00:58 12/29/2018 00:58 Discharged to Home. Impression: Abdominal tenderness; ea Constipation; Dysuria. Condition is Stable. Forms are Medication Reconciliation Form, Thank You Letter, Antibiotic Education, Prescription Opioid Use. Follow up: Private Physician; When: 2 - 3 days; Reason: Recheck today's complaints, Continuance of care, Re-evaluation by your physician. Problem is new. Symptoms have improved. jeannette
[2018-12-29 01:32] VITALS: TEMP 97.7
[2018-12-29 01:34] VITALS: BP 120/78; O2SAT 99
--- NOTE | 2018-12-31 13:59 | RAD REPORT ---
EXAM DESCRIPTION: XR Abdomen, 1 View CLINICAL HISTORY: The patient is 33 years old and is Female; ABD PAIN TECHNIQUE: Frontal supine view of the abdomen/pelvis. COMPARISON: No relevant prior studies available. FINDINGS: GASTROINTESTINAL TRACT: Stool is present throughout the colon. No dilated loops of bowel are seen. There is no bowel obstruction. No abnormal calcifications or soft tissue masses are noted. BONES/JOINTS: Unremarkable. SOFT TISSUES: An IUD is in place. IMPRESSION: Nonobstructive, nonspecific bowel gas pattern. Electronically signed by: Rosalba Donaldson MD 12/29/2018 2:23 AM HOSPICE NURSE PRACTITIONER Due to temporary technical issues with the PACS/Fluency reporting system, reports are being signed by the in house radiologist as a courtesy to ensure prompt reporting. The interpreting radiologist is f ully responsible for the content of the report.
== END 2018-12-29 01:27 | disposition home or self-care (01) ==
LOC: ER 23:25
DX: K59.00 Constipation, unspecified (principal); R30.0 Dysuria; Z88.0 Allergy status to penicillin; Z88.8 Allergy status to other drugs, medicaments and biological substances
CPT/HCPCS: 74018; 81003; 81025; 87086; 87088; 99284

== ENCOUNTER 2019-01-08 10:31 | Emergency (ER) | payer SELFPAY ==
--- OUTSIDE RECORDS SUMMARY | 2019-01-08 10:33 | XMS REPORT ---
:1985 [facility] Address [address] [place] [address] Dr. Delaney. [address] [place] [id number] Care Team Providers Name Role Phone Unavailable Unavailable Unavailable Problems This patient has no known problems. Allergies, Adverse Reactions, Alerts This patient has no known allergies or adverse reactions. Medications This patient has no known medications.
[2019-01-08] MEDS ORDERED: BENZONATATE 100 MG CAP PO ONE ×2 (11:28→11:29)
--- NOTE | 2019-01-08 12:01 | ER ---
Nurse's Notes [facility] Name: Marcy Montiel Age: 33 yrs Sex: Female : 1985 Arrival Date: 01/08/2019 Time: 10:34 Bed 12 Private MD: Diagnosis: Bronchitis, not specified as acute or chronic Presentation: 01/08 10:46 Presenting complaint: Patient states: Cough and congestion for 4 days, chest pain this ca1 morning when I woke up. Headaches last last week. Denies fever. Transition of care: patient was not received from another setting of care. Onset of symptoms was January 08, 2019. Risk Assessment: Do you want to hurt yourself or someone else? Patient reports no desire to harm self or others. Initial Sepsis Screen: Does the patient meet any 2 criteria? No. Patient's initial sepsis screen is negative. Does the patient have a suspected source of infection? No. Patient's initial sepsis screen is negative. Care prior to arrival: None. 10:46 Method Of Arrival: Ambulatory ca1 10:46 Acuity: ZAINAB 3 ca1 STRAIGHT CUTTER: 10:48 LMP N/A - control method ca1 Historical: - Allergies: 10:48 Benadryl; ca1 10:48 diphenhydramine HCl; ca1 10:48 PENICILLINS; ca1 - Home Meds: 10:48 None [Active]; ca1 - PMHx: 10:48 None; ca1 - PSHx: 10:48 None; ca1 - Immunization history:: Adult Immunizations up to date, Pneumococcal vaccine is not up to date, Flu vaccine is not up to date. - Social history:: Smoking status: Patient uses tobacco products, smokes one-half pack cigarettes per day. - Ebola Screening: : Patient negative for fever greater than or equal to 101.5 degrees Fahrenheit, and additional compatible Ebola Virus Disease symptoms Patient denies exposure to infectious person Patient denies travel to an Ebola-affected area in the 21 days before illness onset No symptoms or risks identified at this time. Screenin:58 Abuse screen: Denies threats or abuse. Denies injuries from another. Nutritional ca1 screening: No deficits noted. Tuberculosis screening: No symptoms or risk factors identified. Fall Risk None identified. Assessment: 10:58 General: Appears in no apparent distress. comfortable, Behavior is calm, cooperative, ca1 appropriate for age. Pain: Complains of pain in chest Pain does not radiate. Pain currently is 7 out of 10 on a pain scale. Quality of pain is described as sharp, Pain began 4 hours ago. Is continuous. Neuro: Level of Consciousness is awake, alert, obeys commands, Oriented to person, place, time, situation, Appropriate for age. Cardiovascular: Heart tones S1 S2 present Capillary refill < 3 seconds Patient's skin is warm and dry. Respiratory: Reports cough that is Airway is patent Respiratory effort is even, unlabored, Respiratory pattern is regular, symmetrical, Breath sounds are clear bilaterally. EENT: Throat is clear is pink Parent/caregiver reports the patient having nasal congestion. Derm: Skin is intact, is healthy with good turgor, Skin is pink, warm \T\ dry. Musculoskeletal: Circulation, motion, and sensation intact. Capillary refill < 3 seconds, Range of motion: intact in all extremities. 12:05 Reassessment: Patient appears in no apparent distress at this time. Patient is alert, ca1 oriented x 3, equal unlabored respirations, skin warm/dry/pink. Vital Signs: 10:48 BP 107 / 66; Pulse 91; Resp 17 S; Temp 98.3(TE); Pulse Ox 98% on R/A; Weight 53.07 kg ca1 (R); Height 5 ft. 4 in. (162.56 cm) (R); Pain 8/10; 12:05 BP 111 / 64; Pulse 89; Resp 17 S; Pulse Ox 98% on R/A; ca1 10:48 Body Mass Index 20.08 (53.07 kg, 162.56 cm) ca1 ED Course: 10:34 Patient arrived in ED. mr 10:48 Triage completed. ca1 10:48 Arm band placed on right wrist. ca1 10:54 Clara Saldivar, RN is Primary Nurse. ca1 10:57 Augie Bennett FNP-C is PHCP. la1 10:57 Alvaro Godwin MD is Attending Physician. la1 10:58 Patient has correct armband on for positive identification. Pulse ox on. NIBP on. ca1 10:58 No provider procedures requiring assistance completed. Patient did not have IV access ca1 during this emergency room visit. Patient maintains SpO2 saturation greater than 95% on room air. 11:12 EKG done, by angiography technologist. reviewed by Augie Attema EDUCATION REPORTER-C. at1 Administered Medications: 11:28 Drug: Tessalon Perle 200 mg Route: PO; ca1 12:06 Follow up: Response: No adverse reaction; Marked relief of symptoms ca1 Outcome: 12:00 Discharge ordered by MD. reed 12:07 Discharged to home ambulatory. ca1 12:07 Condition: stable 12:07 Discharge instructions given to patient, Instructed on discharge instructions, follow up and referral plans. medication usage, Demonstrated understanding of instructions, follow-up care, medications, Prescriptions given X 1. 12:08 Patient left the ED. ca1 Signatures: Rina Mejnivar Oscar, Yaa, hairspring studder EKG Tat1 Augie Bennett, [facility] EDUCATION REPORTER-Cla1 Clara Saldivar, RN RN ca1
--- NOTE | 2019-01-08 12:02 | EDPHYS ---
Physician Documentation [facility] Name: Marcy Montiel Age: 33 yrs Sex: Female : 1985 Arrival Date: 01/08/2019 Time: 10:34 Bed 12 Private MD: ED Physician Alvaro Godwin HPI: 01/08 11:10 This 33 yrs old Female presents to ER via Ambulatory with complaints of la1 Cough, Chest Pain. 11:10 The patient or guardian reports cough, that is intermittent, described as mild. Onset: la1 The symptoms/episode began/occurred 4 day(s) ago. Severity of symptoms: At their worst the symptoms were mild. Modifying factors: The symptoms are alleviated by nothing, the symptoms are aggravated by nothing. Associated signs and symptoms: Pertinent negatives: diarrhea, ear ache, fever. pt reports chest pain upon inspiration, cough for the last few days, and malaise. FUSE CUTTER: 10:48 LMP N/A - control method ca1 Historical: - Allergies: 10:48 Benadryl; ca1 10:48 diphenhydramine HCl; ca1 10:48 PENICILLINS; ca1 - Home Meds: 10:48 None [Active]; ca1 - PMHx: 10:48 None; ca1 - PSHx: 10:48 None; ca1 - Immunization history:: Adult Immunizations up to date, Pneumococcal vaccine is not up to date, Flu vaccine is not up to date. - Social history:: Smoking status: Patient uses tobacco products, smokes one-half pack cigarettes per day. - Ebola Screening: : Patient negative for fever greater than or equal to 101.5 degrees Fahrenheit, and additional compatible Ebola Virus Disease symptoms Patient denies exposure to infectious person Patient denies travel to an Ebola-affected area in the 21 days before illness onset No symptoms or risks identified at this time. ROS: 11:11 Constitutional: Negative for fever, chills, and weight loss, Eyes: Negative for injury, la1 pain, redness, and discharge, ENT: Negative for injury, pain, and discharge, Neck: Negative for injury, pain, and swelling, Cardiovascular: + for chest pain, Abdomen/GI: Negative for abdominal pain, nausea, vomiting, diarrhea, and constipation, Back: Negative for injury and pain, : Negative for injury, bleeding, discharge, and swelling, MS/Extremity: Negative for injury and deformity. 11:11 Respiratory: Positive for cough, pleurisy. Exam: 11:11 Constitutional: This is a well developed, well nourished patient who is awake, alert, la1 and in no acute distress. Head/Face: Normocephalic, atraumatic. Eyes: Pupils equal round and reactive to light, extra-ocular motions intact. Periorbital areas with no swelling, redness, or edema. ENT: Nares patent. No nasal discharge, no septal abnormalities noted. Tympanic membranes are normal and external auditory canals are clear. Oropharynx with no redness, swelling, or masses, exudates, or evidence of obstruction, uvula midline. Mucous membranes moist. Neck: Trachea midline, no cervical lymphadenopathy. Supple, full range of motion without nuchal rigidity, or vertebral point tenderness. No Meningismus. Chest/axilla: Normal chest wall appearance and motion. Nontender with no deformity. No lesions are appreciated. Cardiovascular: Regular rate and rhythm with a normal S1 and S2. No gallops, murmurs, or rubs. Normal PMI, no JVD. No pulse deficits. Respiratory: Lungs have equal breath sounds bilaterally, clear to auscultationNo rales, rhonchi or wheezes noted. No increased work of breathing, no retractions or nasal flaring. Back: No spinal tenderness. No costovertebral tenderness. Full range of motion. Neuro: Awake and alert, GCS 15, oriented to person, place, time, and situation. Normal gait. Vital Signs: 10:48 BP 107 / 66; Pulse 91; Resp 17 S; Temp 98.3(TE); Pulse Ox 98% on R/A; Weight 53.07 kg ca1 (R); Height 5 ft. 4 in. (162.56 cm) (R); Pain 8/10; 12:05 BP 111 / 64; Pulse 89; Resp 17 S; Pulse Ox 98% on R/A; ca1 10:48 Body Mass Index 20.08 (53.07 kg, 162.56 cm) ca1 MDM: 10:57 Patient medically screened. la1 11:58 Differential Diagnosis: Bronchitis Influenza Upper Respiratory Infection Sinusitis la1 Pharyngitis Allergic Rhinitis Viral Syndrome. Data reviewed: vital signs, nurses notes, lab test result(s), EKG, I have discussed the patient's presentation/case with the attending Emergency Department Physician; and as a result, I will discharge patient. Data interpreted: Pulse oximetry: on room air is 98 %. Interpretation: normal. Test interpretation: by ED physician or midlevel provider: ECG. Counseling: I had a detailed discussion with the patient and/or guardian regarding: the historical points, exam findings, and any diagnostic results supporting the discharge/admit diagnosis, lab results, the need for outpatient follow up, a family practitioner. 01/08 10:50 Order name: Flu ca1 01/08 10:50 Order name: Strep ca1 01/08 11:09 Order name: EKG; Complete Time: 11:10 la1 01/08 11:09 Order name: EKG - Nurse/Tech; Complete Time: 11: la1 01/08 11:24 Order name: Throat Culture EDMS Administered Medications: 11:28 Drug: Tessalon Perle 200 mg Route: PO; ca1 12:06 Follow up: Response: No adverse reaction; Marked relief of symptoms ca1 Disposition: 14:29 Co-signature as Attending Physician, Alvaro Godwin MD. rn Disposition: 01/08/19 12:00 Discharged to Home. Impression: Bronchitis, not specified as acute or chronic. - Condition is Stable. - Discharge Instructions: Upper Respiratory Infection, Adult, Upper Respiratory Infection, Adult, [id number]. - Prescriptions for Tessalon Perles 100 mg Oral Capsule - take 1 capsule by ORAL route every 8 hours As needed; 15 capsule. - Work release form, Medication Reconciliation Form, Thank You Letter form. - Follow up: Private Physician; When: 2 - 3 days; Reason: Recheck today's complaints, Re-evaluation by your physician. - Problem is new. - Symptoms are unchanged. - Notes: Take over the counter cough allergy medicine in addition to the prescribed cough medicine. Signatures: Dispatcher [employer] EDMS Alvaro Godwin MD MD rn Augie Bennett, FLORIST HELPER-C FLORIST HELPER-Cla1 Clara Saldivar RN RN ca1 Corrections: (The following items were deleted from the chart) 12:08 12:00 01/08/2019 12:00 Discharged to Home. Impression: Bronchitis, not specified as ca1 acute or chronic. Condition is Stable. Forms are Medication Reconciliation Form, Thank You Letter, Antibiotic Education, Prescription Opioid Use. Follow up: Private Physician; When: 2 - 3 days; Reason: Recheck today's complaints, Re-evaluation by your physician. Problem is new. Symptoms are unchanged. la1
[2019-01-08 12:29] VITALS: TEMP 98.3; O2SAT 98
[2019-01-08 12:45] VITALS: BP 111/64
--- NOTE | 2019-01-09 06:24 | EKG ---
Test Date: 2019-01-08 Test Time: 10:57:54 Principal Military Analyst: TARAS MEASUREMENT RESULTS: Intervals: Rate: 79 OH: 116 QRSD: 74 QT: 368 QTc: 421 [place]: P: 80 OH: 116 QRS: 84 T: 54 INTERPRETIVE STATEMENTS: Normal sinus rhythm Right atrial enlargement Possible Anterior infarct, age undetermined Abnormal ECG No previous ECG available for comparison Electronically Signed On 01-09-19 06:23:39 SALESFORCE ADMINISTRATOR by William Khalil
== END 2019-01-08 12:08 | disposition home or self-care (01) ==
LOC: ER 10:31
DX: J40 Bronchitis, not specified as acute or chronic (principal); F17.210 Nicotine dependence, cigarettes, uncomplicated; Z88.0 Allergy status to penicillin; Z88.8 Allergy status to other drugs, medicaments and biological substances
CPT/HCPCS: 87070; 87081; 87804; 93005; 99284

== ENCOUNTER 2019-08-20 14:26 | Emergency (ER) | payer SELFPAY ==
--- NOTE | 2019-08-20 17:39 | ER ---
Nurse's Notes [facility] Name: Marcy Montiel Age: 34 yrs Sex: Female : 1985 Arrival Date: 08/20/2019 Time: 14:29 Bed IW2 Private MD: Diagnosis: Hordeolum internum right upper eyelid Presentation: 08/19 14:49 Chief complaint: Patient states: Right eye redness for 3 days. Noticed upper eyelid ll1 swelling. Tried to clean it last night, made it worse. + yellow drainage per patient. No fever. Coronavirus screen: Proceed with normal triage. Patient denies a cough. Patient denies shortness of breath or difficulty breathing. Patient denies measured and/or subjective temperature greater than 100.4F prior to today's visit. Patient denies travel on a cruise ship or to a country the [facility] currently lists as an affected area. Patient denies contact with known and/or suspected case of COVID-19. Ebola Screen: Patient denies travel to an Ebola-affected area in the 21 days before illness onset. Risk Assessment: Do you want to hurt yourself or someone else? Patient reports no desire to harm self or others. Onset of symptoms was August 17, 2019. 14:49 Method Of Arrival: Ambulatory ll1 14:49 Acuity: ZAINAB 4 ll1 17:50 Initial Sepsis Screen: Does the patient meet any 2 criteria? No. Patient's initial iw sepsis screen is negative. Does the patient have a suspected source of infection? No. Patient's initial sepsis screen is negative. Triage Assessment: 17:50 General: Appears in no apparent distress. Behavior is calm, cooperative. 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 - Social history:: Smoking status: Patient reports the use of cigarette tobacco products, smokes one-half pack cigarettes per day, Patient uses alcohol, only on a social basis. Patient/guardian denies using street drugs. Screenin:50 Abuse screen: Denies threats or abuse. Denies injuries from another. Nutritional iw screening: No deficits noted. Tuberculosis screening: No symptoms or risk factors identified. Fall Risk None identified. Assessment: 17:50 General: Appears in no apparent distress. Behavior is calm, cooperative. Pain: iw Complains of pain in right upper eyelid. Neuro: Level of Consciousness is awake, alert, obeys commands, Oriented to person, place, time, situation, Moves all extremities. Full function. Cardiovascular: Patient's skin is warm and dry. Respiratory: Respiratory effort is even, unlabored, Respiratory pattern is regular, symmetrical. EENT: Lid(s) w/ stye noted right upper eyelid. Derm: Skin is intact, is healthy with good turgor. Musculoskeletal: Range of motion: intact in all extremities. Vital Signs: 14:49 BP 108 / 73; Pulse 69; Resp 17; Temp 98.2; Pulse Ox 100% ; Pain 10/10; ll1 ED Course: 14:29 Patient arrived in ED. ag5 14:51 Triage completed. ll1 14:51 Arm band placed on Patient notified of wait time. ll1 17:30 Ervin Hutson NP is PHCP. pm1 17:30 Oliver Conrad MD is Attending Physician. pm1 17:50 Patient has correct armband on for positive identification. iw 17:59 No provider procedures requiring assistance completed. Patient did not have IV access iw during this emergency room visit. 18:00 Delilah Velazquez, RN is Primary Nurse. iw Administered Medications: No medications were administered Outcome: 17:39 Discharge ordered by MD. pm1 17:59 Discharged to home ambulatory. iw 17:59 Condition: good 17:59 Discharge instructions given to patient, Instructed on discharge instructions, follow up and referral plans. medication usage, Demonstrated understanding of instructions, follow-up care, medications, Prescriptions given X 1. 18:00 Patient left the ED. iw Signatures: Delilah Velazquez RN RN iw Ervin Hutson NP [facility] pm1 Clovis Hines ag5 Katarina Santamaria RN RN ll1 Corrections: (The following items were deleted from the chart) 14:52 14:49 Acuity: ZAINAB 3 ll1 ll1
--- NOTE | 2019-08-20 17:40 | EDPHYS ---
Physician Documentation [facility] Name: Marcy Montiel Age: 34 yrs Sex: Female : 1985 Arrival Date: 08/20/2019 Time: 14:29 Bed IW2 Private MD: ED Physician Oliver Conrad HPI: 08/19 17:38 This 34 yrs old Female presents to ER via Ambulatory with complaints of pm1 Redness of Eye, Eye Swelling, Drainage From Eye. 17:38 The patient is experiencing pain, swelling, to the right eye, caused by possibly pm1 makeup. Onset: The symptoms/episode began/occurred 2 day(s) ago. Duration: the symptoms are continuous. Aggravated by squeezing, expressing Alleviated by ice pack. Associated signs and symptoms: Pertinent negatives: None. ear ache, fever, headache. Patient does not utilize any form of vision correction. Severity of symptoms: in the emergency department the symptoms have improved. The patient has experienced similar episodes in the past, a few times. The patient has not recently seen a physician. 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 - Social history:: Smoking status: Patient reports the use of cigarette tobacco products, smokes one-half pack cigarettes per day, Patient uses alcohol, only on a social basis. Patient/guardian denies using street drugs. ROS: 17:38 Constitutional: Negative for fever, chills, and weight loss. pm1 17:38 ENT: Negative for injury, pain, and discharge, Neck: Negative for injury, pain, and swelling, Neuro: Negative for headache, weakness, numbness, tingling, and seizure. 17:38 Eyes: Positive for pain, swelling, of the right upper eyelid, Negative for vision loss, visual disturbance. 17:38 All other systems are negative. Exam: 17:38 Constitutional: This is a well developed, well nourished patient who is awake, alert, pm1 and in no acute distress. Head/Face: Normocephalic, atraumatic. 17:38 Eyes: Periorbital structures: cellulitis, is not appreciated, swelling, is not appreciated, Pupils: no acute changes, Extraocular movements: no acute changes, Conjunctiva: injected, in the right eye, Lids and lashes: edema, of the right eye, stye, seen on the right lid. 17:38 Cardiovascular: Exam negative for acute changes, Rate: normal, Rhythm: regular, Pulses: no pulse deficits are appreciated. 17:38 Musculoskeletal/extremity: Exam is negative for 17:38 Skin: Exam negative for 17:38 Neuro: Exam negative for acute changes, Orientation: is normal, Mentation: is normal, Motor: is normal, moves all fours, Gait: is steady, at a normal pace, without difficulty. Vital Signs: 14:49 BP 108 / 73; Pulse 69; Resp 17; Temp 98.2; Pulse Ox 100% ; Pain 10/10; ll1 MDM: 17:37 Patient medically screened. pm1 17:38 Data reviewed: vital signs. Data interpreted: Pulse oximetry: on room air is 100 %. pm1 Interpretation: normal. Counseling: I had a detailed discussion with the patient and/or guardian regarding: the historical points, exam findings, and any diagnostic results supporting the discharge/admit diagnosis, the need for outpatient follow up, for definitive care, an opthalmologist, to return to the emergency department if symptoms worsen or persist or if there are any questions or concerns that arise at home. Administered Medications: No medications were administered Disposition: 20:37 Co-signature as Attending Physician, Oliver Conrad MD I agree with the assessment and jeannette plan of care. Disposition: 08/20/19 17:39 Discharged to Home. Impression: Hordeolum internum right upper eyelid. - Condition is Stable. - Discharge Instructions: Stye. - Prescriptions for Erythromycin 5 mg/gram (0.5 %) Ophthalmic Ointment - apply 1 centimeter by OPHTHALMIC route every 8 hours for 7 days; 1 tube. - Work release form, Medication Reconciliation Form, Thank You Letter, Antibiotic Education, Prescription Opioid Use form. - Follow up: Emergency Department; When: As needed; Reason: Worsening of condition. Follow up: Private Physician; When: 2 - 3 days; Reason: Recheck today's complaints, Continuance of care, Re-evaluation by your physician. - Problem is new. - Symptoms have improved. Signatures: Oliver Conrad MD MD cha Williams, Irene RN RN iw Ervin Hutson, SARAH PIPE ORGAN MECHANIC APPRENTICE pm1 Katarina Santamaria RN RN ll1 Corrections: (The following items were deleted from the chart) 18:00 17:39 08/20/2019 17:39 Discharged to Home. Impression: Hordeolum internum right upper iw eyelid. Condition is Stable. Forms are Medication Reconciliation Form, Thank You Letter, Antibiotic Education, Prescription Opioid Use. Follow up: Emergency Department; When: As needed; Reason: Worsening of condition. Follow up: Private Physician; When: 2 - 3 days; Reason: Recheck today's complaints, Continuance of care, Re-evaluation by your physician. Problem is new. Symptoms have improved. pm1
--- OUTSIDE RECORDS SUMMARY | 2019-08-20 17:52 | XMS REPORT | Continuity of Care Document ---
:1985 Author Organization [facility] t Address [address] [place] [address] Care Team Providers Name Role Phone Laura Mcgee Attending Clinician Problems This patient has no known problems. Allergies, Adverse Reactions, Alerts This patient has no known allergies or adverse reactions. Medications This patient has no known medications. Procedures This patient has no known procedures. Encounters Start End Encounter Admission Attending Care Care Encounter Source Date/Time Date/Time Type Type Clinicians Facility Department ID 2018-10-03 2018-10-03 Telephone Elva [facility] [id number] 00:00:00 00:00:00 Margo Sanchez LANGUAGE PATH [id number] [facility] [id number] MATERNAL [id number] & CHILD 107 [facility] 2018-10-03 2018-10-03 Telephone Elva [facility] [id number] 00:00:00 00:00:00 Margo Sanchez LANGUAGE PATH [id number] [facility] [id number] MATERNAL [id number] & CHILD 107 [facility] Results This patient has no known results.
[2019-08-20 18:23] VITALS: BP 108/73; TEMP 98.2; O2SAT 100
== END 2019-08-20 18:00 | disposition home or self-care (01) ==
LOC: ER 14:26
DX: H00.021 Hordeolum internum right upper eyelid (principal); F17.210 Nicotine dependence, cigarettes, uncomplicated; Z88.8 Allergy status to other drugs, medicaments and biological substances
CPT/HCPCS: 99282

== ENCOUNTER 2019-11-26 18:07 | Emergency (ER) | payer SELFPAY ==
--- OUTSIDE RECORDS SUMMARY | 2019-11-26 18:09 | XMS REPORT | Continuity of Care Document ---
:1985 Author Organization [facility] t Address [address] [place] [address] Care Team Providers Name Role Phone Laura [...] Facility Department ID 2018-10-03 2018-10-03 Telephone Elva [facility] [id number] 00:00:00 00:00:00 Margo Sanchez SIGNAL OPERATOR [id number] [facility] [id number] MATERNAL [id number] & CHILD 107 [facility] 2018-10-03 2018-10-03 Telephone Elva [facility] [id number] 00:00:00 00:00:00 Margo Sanchez SIGNAL OPERATOR [id number] [facility] [id number] MATERNAL [id number] & CHILD 107 [facility] Results This patient has no known results.
[2019-11-26 20:08] LABS: Absolute Lymphocytes (CBC) 0.8 K/uL (0.7-4.9); Basophils % 0.2 % (0-1.3); Hematocrit 42.3 % (36.0-45.0); Lymphocytes % 5.6 % (15.3-44.8); MPV 8.3 fL (7.6-11.3); RBC Red Blood Cell Count 4.75 M/uL (3.86-4.86)
[2019-11-26 20:26] LABS: Albumin 3.6 g/dL (3.4-5.0); Bilirubin Direct 0.2 mg/dL (0-0.2); Potassium 3.2 mmol/L (3.5-5.1); Protein, Total 7.7 g/dL (6.4-8.2)
[2019-11-26] MEDS ORDERED: MORPHINE 4 MG/ML SYR ONE (20:36)
[2019-11-26] MEDS ORDERED: ONDANSETRON 4 MG/2 ML VIAL ONE (20:37)
[2019-11-26 20:41] LABS: Urine Blood 2+ (NEG); Urine Glucose NEGATIVE (NEG); Urine Protein 2+ (NEG); Urine Specific Gravity >1.030 (1.005-1.030)
[2019-11-26 21:02] LABS: Blood Morphology Comment NOT SEEN (NOT SEEN); Platelet Estimate ADEQ; White Blood Cell Scan OK (OK)
--- NOTE | 2019-11-26 21:10 | RAD REPORT ---
EXAM DESCRIPTION: CT - Abdomen Pelvis W Contrast - 11/26/2019 8:57 pm CLINICAL HISTORY: Abdominal pain/lower abdominal pain COMPARISON: 2018 TECHNIQUE: Computed axial tomography of the abdomen pelvis was obtained. 100 cc Isovue-300 was admin istered intravenously. Oral contrast was not requested which limits evaluation of bowel and appendix. All CT scans are performed using dose optimization technique as appropriate and may include automated exposure control or mA/KV adjustment according to patient size. FINDINGS: The liver, spleen, pancreas, adrenal and left kidney appear unremarkable. Malrotation righ t kidney There is no evidence of diverticulitis. An IUD is present within the uterus. 17 millimeter irregularly-shaped right ovarian cyst. Significant free fluid is not present Normal appendix IMPRESSION: 17 millimeter irregularly shaped right ovarian cyst may have recently ruptured. Signific ant free fluid is not present.
--- NOTE | 2019-11-26 21:13 | EDPHYS ---
Physician Documentation [facility] Name: Marcy Montiel Age: 34 yrs Sex: Female : 1985 Arrival Date: 11/26/2019 Time: 18:[address] Private MD: ED Physician Alvaro Godwin HPI: 11/25 20:50 This 34 yrs old Female presents to ER via Ambulatory with complaints of IUD rn Problem, Decreased Appetite, Pain. 20:50 This 34 yrs old Female presents to ER via Ambulatory with complaints of rn abdominal pain. 20:50 The patient presents with abdominal pain in the lower abdomen. Onset: The rn symptoms/episode began/occurred yesterday. The symptoms do not radiate. Associated signs and symptoms: Pertinent positives: nausea, Pertinent negatives: blood in stools, fever, shortness of breath, vaginal discharge, vomiting blood. Modifying factors: The symptoms are alleviated by nothing, the symptoms are aggravated by touching the area. Severity of pain: At its worst the pain was mild in the emergency department the pain is unchanged. The patient has not experienced similar symptoms in the past. Reports lower abd pain, assoc with nausea, no fever, reports vaginal spotting, no vaginal discharge, no diarrhea. No trauma. Has had IUD for 1 year without problem. . Historical: - Allergies: 18:35 Benadryl; ll1 18:35 diphenhydramine HCl; ll1 - PSHx: 18:35 None; ll1 - Immunization history:: Flu vaccine is not up to date. - Social history:: Smoking status: Patient reports the use of cigarette tobacco products, smokes one-half pack cigarettes per day. - Family history:: not pertinent. - Hospitalizations: : No recent hospitalization is reported. ROS: 20:50 Constitutional: Negative for fever, chills, and weight loss, Eyes: Negative for injury, rn pain, redness, and discharge, Neck: Negative for injury, pain, and swelling, Cardiovascular: Negative for chest pain, palpitations, and edema, Respiratory: Negative for shortness of breath, cough, wheezing, and pleuritic chest pain, Abdomen/GI: + lower abd pain and nausea : Negative for injury, discharge, and swelling, + vaginal bleeding, spotting. MS/Extremity: Negative for injury and deformity, Neuro: Negative for headache, weakness, numbness, tingling, and seizure. Exam: 20:50 Constitutional: This is a well developed, well nourished patient who is awake, alert, rn and in no acute distress. Head/Face: Normocephalic, atraumatic. Cardiovascular: Regular rate and rhythm. No pulse deficits. Respiratory: No increased work of breathing, no retractions or nasal flaring. Abdomen/GI: soft, mild RLQ, suprapubic, and LLQ tenderness, no rebound, no masses Skin: Warm, dry MS/ Extremity: Pulses equal, no cyanosis. Neurovascular intact. Full, normal range of motion. Equal circumference. Neuro: Awake and alert, GCS 15 Vital Signs: 18:30 Pulse 105; Resp 17; Temp 98.7; Pulse Ox 98% ; Height 5 ft. 4 in. (162.56 cm); Pain ll1 10/10; 18:35 BP 104 / 63; ll1 20:47 BP 115 / 56; Pulse 88; Resp 18; Pulse Ox 98% on R/A; ea MDM: 19:38 Patient medically screened. rn 21:12 Differential diagnosis: appendicitis, Endometriosis, non-specific abd pain, rn Ureterolithiasis, urinary tract infection, ovarian cyst, ovarian cyst with rupture. Data reviewed: vital signs, nurses notes, lab test result(s), radiologic studies, CT scan, and as a result, I will discharge patient. Counseling: I had a detailed discussion with the patient and/or guardian regarding: the historical points, exam findings, and any diagnostic results supporting the discharge/admit diagnosis, lab results, radiology results, the need for outpatient follow up, to return to the emergency department if symptoms worsen or persist or if there are any questions or concerns that arise at home. Response to treatment: the patient's symptoms have mildly improved after treatment, and as a result, I will discharge patient. Special discussion: Based on the patient's Hx, exam, and Dx evaluation, there is no indication for emergent surgery or inpatient Tx. It is understood by the patient/guardian that if the Sx's persist or worsen they need to return immediately for re-evaluation. I discussed with the patient/guardian in detail that at this point there is no indication for admission to the hospital. It is understood, however, that if the symptoms persist or worsen the patient needs to return immediately for re-evaluation. 11/25 19:44 Order name: Basic Metabolic Panel; Complete Time: 21:11 rn 11/25 19:44 Order name: CBC with Diff; Complete Time: 21:11 rn 11/25 19:44 Order name: Hepatic Function; Complete Time: 21:11 rn 11/25 19:44 Order name: Lipase; Complete Time: 21:11 rn 11/25 19:44 Order name: Urine Microscopic Only rn 11/25 20:36 Order name: Urine --Ancillary (enter results); Complete Time: 21:11 tt3 11/25 19:44 Order name: IV Saline Lock; Complete Time: 21:23 rn 11/25 19:44 Order name: Labs collected and sent; Complete Time: 21:23 rn 11/25 19:44 Order name: Urine Test (obtain specimen); Complete Time: 20:52 rn 11/25 19:44 Order name: CT Abd/Pelvis - IV Contrast Only; Complete Time: 21:11 rn 11/25 20:36 Order name: Urine Dipstick--Ancillary (enter results); Complete Time: 21:11 tt3 11/25 21:02 Order name: CBC Smear Scan; Complete Time: 21:11 EDMS 11/25 19:44 Order name: Urine Dipstick-Ancillary (obtain specimen); Complete Time: 20:52 rn Administered Medications: 20:35 Drug: Zofran (Ondansetron) 4 mg Route: IVP; Site: right antecubital; ea 21:05 Follow up: Response: Pain is decreased fu 20:37 Drug: morphine 4 mg {Note: rass 0.} Route: IVP; Site: right antecubital; ea 21:05 Follow up: Response: Pain is decreased fu Disposition: 11/26/19 21:13 Discharged to Home. Impression: Other ovarian cysts - With rupture. - Condition is Stable. - Discharge Instructions: Ovarian Cyst. - Prescriptions for Zofran ODT 4 mg Oral tablet,disintegrating - place 1 tablet by TRANSLINGUAL route every 8-10 hours As needed; 20 tablet. Tylenol- Codeine #3 300-30 mg Oral Tablet - take 2 tablet by ORAL route every 6 hours As needed; 20 tablet. - Medication Reconciliation Form, Thank You Letter, Antibiotic Education, Prescription Opioid Use form. - Work release form (11/26/19 21:39). tt3 - Follow up: Private Physician; When: As needed; Reason: Recheck today's complaints, Re-evaluation by your physician. - Problem is new. - Symptoms have improved. Signatures: Dispatcher [employer] EDMS Alvaro Godwin MD MD rn Antunez, Elena RN RN Damian Christensen, RN Katarina Grier RN MARIA G ll1 Yordy Hackett tt3 Corrections: (The following items were deleted from the chart) 21:34 21:13 11/26/2019 21:13 Discharged to Home. Impression: Other ovarian cysts - With fu rupture. Condition is Stable. Forms are Medication Reconciliation Form, Thank You Letter, Antibiotic Education, Prescription Opioid Use. Follow up: Private Physician; When: As needed; Reason: Recheck today's complaints, Re-evaluation by your physician. Problem is new. Symptoms have improved. rn
--- NOTE | 2019-11-26 21:13 | ER ---
Nurse's Notes [facility] Name: Marcy Montiel Age: 34 yrs Sex: Female : 1985 Arrival Date: 11/26/2019 Time: 18:[address] Private MD: Diagnosis: Other ovarian cysts-With rupture Presentation: 11/25 18:30 Chief complaint: Patient states: Pelvic pain, spotting, dysuria for 2 days. Believes ll1 her IUD might be causing the pain. Coronavirus screen: Client denies travel out of the [place] in the last 14 days. At this time, the client does not indicate any symptoms associated with coronavirus-19. Ebola Screen: Patient denies travel to an Ebola-affected area in the 21 days before illness onset. Initial Sepsis Screen: Does the patient meet any 2 criteria? HR > 90 bpm. No. Patient's initial sepsis screen is negative. Does the patient have a suspected source of infection? Yes: Other: pelvic pain. Risk Assessment: Do you want to hurt yourself or someone else? Patient reports no desire to harm self or others. Onset of symptoms was November 25, 2019. 18:30 Method Of Arrival: Ambulatory ll1 18:30 Acuity: ZAINAB 3 ll1 Historical: - Allergies: 18:35 Benadryl; ll1 18:35 diphenhydramine HCl; ll1 - PSHx: 18:35 None; ll1 - Immunization history:: Flu vaccine is not up to date. - Social history:: Smoking status: Patient reports the use of cigarette tobacco products, smokes one-half pack cigarettes per day. - Family history:: not pertinent. - Hospitalizations: : No recent hospitalization is reported. Screenin:46 Abuse screen: Denies threats or abuse. Nutritional screening: No deficits noted. ea Tuberculosis screening: No symptoms or risk factors identified. Fall Risk IV access (20 points). Assessment: 20:46 General: Appears uncomfortable, Behavior is calm, cooperative, appropriate for age. ea Pain: Complains of pain in abdomen. Neuro: Level of Consciousness is awake, alert, obeys commands, Oriented to person, place, time, situation. Cardiovascular: Patient's skin is warm and dry. Respiratory: Airway is patent Respiratory effort is even, unlabored, Respiratory pattern is regular, symmetrical. Derm: Skin is pink, warm \T\ dry. 21:25 Reassessment: Patient appears in no apparent distress at this time. Patient and/or fu family updated on plan of care and expected duration. Pain level reassessed. Patient states feeling better. Vital Signs: 18:30 Pulse 105; Resp 17; Temp 98.7; Pulse Ox 98% ; Height 5 ft. 4 in. (162.56 cm); Pain ll1 10/10; 18:35 BP 104 / 63; ll1 20:47 BP 115 / 56; Pulse 88; Resp 18; Pulse Ox 98% on R/A; ea ED Course: 18:09 Patient arrived in ED. ag5 18:34 Triage completed. ll1 18:35 Arm band placed on. ll1 19:38 Alvaro Godwin MD is Attending Physician. rn 19:44 Fany Bhardwaj RN is Primary Nurse. ea 19:50 Initial lab(s) drawn, by tx, sent to lab. Inserted saline lock: 20 gauge in right jp3 antecubital area, using aseptic technique. Blood collected. Patient maintains SpO2 saturation greater than 95% on room air. 19:50 Urine collected: clean catch specimen, clear, shana colored. jp3 20:47 Patient has correct armband on for positive identification. Bed in low position. Call ea light in reach. Side rails up X2. 20:58 CT Abd/Pelvis - IV Contrast Only In Process Unspecified. EDMS 21:33 No provider procedures requiring assistance completed. IV discontinued, bleeding fu controlled, Pressure dressing applied. Administered Medications: 20:35 Drug: Zofran (Ondansetron) 4 mg Route: IVP; Site: right antecubital; ea 21:05 Follow up: Response: Pain is decreased fu 20:37 Drug: morphine 4 mg {Note: rass 0.} Route: IVP; Site: right antecubital; ea 21:05 Follow up: Response: Pain is decreased fu Outcome: 21:13 Discharge ordered by . rn 21:33 Discharged to home ambulatory. fu 21:33 Condition: stable 21:33 Discharge instructions given to patient, Instructed on discharge instructions, follow up and referral plans. Demonstrated understanding of instructions, follow-up care, Prescriptions given X 2. 21:34 Patient left the ED. fu Signatures: Dispatcher [employer] EDMS Godwin, MD MD el John Elena, RN RN ea Umadhay, Felix, RN Raul Lora jp3 Clovis Hines Lynsay RN RN ll1 Corrections: (The following items were deleted from the chart) 18:35 18:35 Arm band placed on Patient placed in an exam room, on a stretcher, ll1 ll1 20:38 20:37 morphine 4 mg IVP in right antecubital ea maria elena 20:52 20:30 Inserted saline lock: 20 gauge in right antecubital area, using aseptic jp3 technique. Blood collected. 3 20:52 20:30 Initial lab(s) drawn, by tx, sent to lab. jp3 jp3 20:52 20:30 Patient maintains SpO2 saturation greater than 95% on room air. jp3 jp3
[2019-11-26 21:56] LABS: Urine Bacteria <20 /HPF (<20); Urine Culture Reflex Order REFLEXED; Urine Mucus 4+ /HPF (NONE SEEN); Urine RBC <5 /HPF (NONE SEEN)
[2019-11-26 22:17] VITALS: TEMP 98.7; O2SAT 98
[2019-11-26 22:20] VITALS: BP 115/56
== END 2019-11-26 21:34 | disposition home or self-care (01) ==
LOC: ER 18:07
DX: N83.299 Other ovarian cyst, unspecified side (principal); F17.210 Nicotine dependence, cigarettes, uncomplicated; Z88.8 Allergy status to other drugs, medicaments and biological substances
CPT/HCPCS: 36415; 74177; 80048; 80076; 81003; 81015; 81025; 82565; 83690; 85025; 87086; 87088; 96374; 96375; 99284; J2405; Q9967